=== PATIENT | female | born 1975 | race Caucasian/White ===

== ENCOUNTER 2023-08-06 12:10 | Emergency (ER) | payer SELFPAY ==
[2023-08-06 12:20] VITALS: BP 130/71; PULSE 74; RESP 18; TEMP 36.8; O2SAT 100; BMI 38.4
--- NOTE | 2023-08-06 12:41 | ED.NAVMDI1 ---
HPI - Nausea/Vomiting/Diarrhea General Chief complaint: Nausea/Vomiting/Diarrhea Stated complaint: NAUSEA/DIARRHEA/CRAMPING IN STOMACH/FEVER Time Seen by Provider: 08/06/23 12:24 Source: patient Mode of arrival: walk-in Limitations: no limitations History of Present Illness HPI Narrative: 48-year-old female presents for nausea vomiting and diarrhea. It began yesterday and she feels worse today. Whenever she eats or drinks anything she vomits. No blood in her diarrhea. She's had no recent hospitalization or antibiotic use. She hasn't been around anybody that she is aware of being ill. Related Data Previous Rx's Medication Instructions Recorded ondansetron 4 mg disintegrating 4 mg PO Q6H PRN nausea and 08/06/23 tablet vomiting #20 tabs Allergies Allergy/AdvReac Type Severity Reaction Status Date / Time naproxen Allergy Intermediate Verified 08/06/23 12:23 shellfish derived Allergy Intermediate Verified 08/06/23 12:23 Sulfa (Sulfonamide Allergy Intermediate Verified 08/06/23 12:23 Antibiotics) Review of Systems ROS Narrative A ten point review of systems is negative except as noted above. PFSH PFSH Social History Smoking status: Current every day smoker Exam Narrative Exam Narrative: Nurses note and vital signs reviewed and patient is not hypoxic. General: The patient appears well and in no apparent distress. Patient is resting comfortably on cart. Skin: Warm, dry, no pallor noted. There is no rash noted. Head: Normocephalic, atraumatic Eye: Normal conjunctiva, no drainage Ears, Nose, Mouth, and Throat: oral mucosa is moist. Nares patent. Cardiovascular: Regular Rate and Rhythm Respiratory: Patient is in no distress, no accessory muscle use, lungs are clear to auscultation, no wheezing, rales or rhonchi Back: non-tender GI: Normal bowel sounds, mild diffuse tenderness to palpation, no mass or distention Musculoskeletal: The patient has no evidence of calf tenderness, no pitting edema, symmetrical pulses noted bilaterally Neurological: A&O, normal speech Psychiatric: Cooperative Constitutional Vital Signs, click to edit/add: Last Vital Signs Temp 98.2 F 08/06/23 12:20 Pulse 74 08/06/23 12:20 Resp 18 08/06/23 12:20 BP 130/71 08/06/23 12:20 Pulse Ox 100 08/06/23 12:20 O2 Del Method Room Air 08/06/23 12:20 Course Vital Signs Vital signs: Vital Signs Temperature 98.2 F 08/06/23 12:20 Pulse Rate 74 08/06/23 12:20 Respiratory Rate 18 08/06/23 12:20 Blood Pressure 130/71 08/06/23 12:20 Pulse Oximetry 100 08/06/23 12:20 Oxygen Delivery Method Room Air 08/06/23 12:20 Temperature 98.2 F 08/06/23 12:20 Pulse Rate 74 08/06/23 12:20 Respiratory Rate 18 08/06/23 12:20 Blood Pressure 130/71 08/06/23 12:20 Pulse Oximetry 100 08/06/23 12:20 Oxygen Delivery Method Room Air 08/06/23 12:20 MDM - Nausea/Vomiting/Diarrhea MDM Narrative Medical decision making narrative: Blood work is essentially normal. She was given IV fluids and Zofran and is discharged home on Zofran. Treatment diagnosis and follow-up were discussed with the patient. Differential Diagnosis Differential diagnosis: Likely food poisoning, gastroenteritis and dehydration Lab Data Attestation: I reviewed the patient's lab results. Labs: Lab Results 08/06/23 Range/Units 13:00 WBC 6.2 (4.0-11.0) 10^3/uL RBC 4.64 (4.20-5.40) 10^6/uL Hgb 13.8 (12.0-16.0) g/dL Hct 42.8 (36.0-48.0) % MCV 92.2 (81.0-99.0) fL MCH 29.7 (26.7-34.0) pg MCHC 32.2 (29.9-35.2) g/dL RDW 13.8 (11.0-15.0) % Plt Count 199 (150-450) 10^3/uL MPV 10.4 (9.5-13.5) fL Neut % (Auto) 66.5 (43.0-75.0) % Lymph % (Auto) 23.3 (20.5-60.0) % [place] % (Auto) 7.9 (1.7-12.0) % Eos % (Auto) 1.6 (0.9-7.0) % Baso % (Auto) 0.5 (0.2-2.0) % Neut # (Auto) 4.1 (1.4-6.5) 10^3/uL Lymph # (Auto) 1.4 (1.2-3.8) 10^3/uL [place] # (Auto) 0.5 (0.3-0.8) 10^3/uL Eos # (Auto) 0.1 (0.0-0.7) 10^3/uL Baso # (Auto) 0.0 (0.0-0.1) 10^3/uL Abs Immat Gran (auto) 0.01 (0.00-0.03) 10^3/uL Imm/Tot Granulo (auto) 0.2 (0.0-0.5) % Sodium 141 (136-145) mmol/L Potassium 4.3 (3.5-5.1) mmol/L Chloride 106 (98-107) mmol/L Carbon Dioxide 27.5 (21.0-32.0) mmol/L Anion Gap 11.8 BUN 12.0 (7.0-18.0) mg/dL Creatinine 0.72 (0.55-1.02) mg/dL Est GFR ( Amer) >60 (>=60) Est GFR (Non-Af Amer) >60 (>=60) BUN/Creatinine Ratio 16.7 Glucose 88 (74-106) mg/dL Calcium 9.1 (8.5-10.1) mg/dL Discharge Plan Discharge Chief Complaint: Nausea/Vomiting/Diarrhea Clinical Impression: Nausea vomiting and diarrhea Patient Disposition: Home, Self-Care Time of Disposition Decision: 13:49 Condition: Good Mode of Transportation: Private Vehicle Prescriptions / Home Meds: New ondansetron 4 mg tablet,disintegrating 4 mg PO Q6H PRN (Reason: nausea and vomiting) Qty: 20 0RF Instructions: Acute Nausea and Vomiting (ED) Stand Alone Forms: Portal Instructions Referrals: Physician,Non-Staff, MD [Primary Care Provider] - 1 week
[2023-08-06] MEDS: 0.9 % SODIUM CHLORIDE 1,000 ML 1000 ML IV (13:02)
[2023-08-06] MEDS: ONDANSETRON PF 4 MG/2 ML VIAL IV (13:03)
[2023-08-06 13:08] LABS: Basophils Percent Auto 0.5 % (0.2-2.0); Eosinophils Absolute Auto 0.1 10^3/uL (0.0-0.7); Eosinophils Percent Auto 1.6 % (0.9-7.0); Hematocrit 42.8 % (36.0-48.0); Hemoglobin 13.8 g/dL (12.0-16.0); Immature Granulocytes Abs Auto 0.01 10^3/uL (0.00-0.03); Immature Granulocytes Pct Auto 0.2 % (0.0-0.5); Lymphocytes Absolute Auto 1.4 10^3/uL (1.2-3.8); Lymphocytes Percent Auto 23.3 % (20.5-60.0); Mean Corpuscular HGB Conc 32.2 g/dL (29.9-35.2); Mean Corpuscular Hemoglobin 29.7 pg (26.7-34.0); Mean Corpuscular Volume 92.2 fL (81.0-99.0); Mean Platelet Volume 10.4 fL (9.5-13.5); Monocytes Absolute Auto 0.5 10^3/uL (0.3-0.8); Monocytes Percent Auto 7.9 % (1.7-12.0); Neutrophils Absolute Auto 4.1 10^3/uL (1.4-6.5); Neutrophils Percent Auto 66.5 % (43.0-75.0); Platelet Count 199 10^3/uL (150-450); Red Blood Count 4.64 10^6/uL (4.20-5.40); Red Cell Distribution Width 13.8 % (11.0-15.0); White Blood Count 6.2 10^3/uL (4.0-11.0)
[2023-08-06 13:16] LABS: Anion Gap 11.8; BUN Creatinine Ratio 16.7; Calcium 9.1 mg/dL (8.5-10.1); Carbon Dioxide 27.5 mmol/L (21.0-32.0); Chloride 106 mmol/L (98-107); Estimated GFR (African America >60 (>=60); Estimated GFR (Non-African Ame >60 (>=60); Glucose 88 mg/dL (74-106); Potassium 4.3 mmol/L (3.5-5.1); Sodium 141 mmol/L (136-145)
[2023-08-06 13:48] VITALS: BP 124/79; PULSE 63; RESP 18; O2SAT 98
== END 2023-08-06 14:03 | disposition home or self-care (01) ==
PROVIDERS: Emergency Provider Emergency Medicine
DX: R11.2 Nausea with vomiting, unspecified (principal); R19.7 Diarrhea, unspecified; F17.210 Nicotine dependence, cigarettes, uncomplicated
CPT/HCPCS: 36415; 80048; 85025; 96361; 96374; 99284

== ENCOUNTER 2023-09-21 17:38 | Emergency (ER) | payer SELFPAY ==
[2023-09-21 18:04] VITALS: BP 120/70; PULSE 72; RESP 18; TEMP 36.8; O2SAT 94; BMI 36.3
--- NOTE | 2023-09-21 19:16 | ED_ITS ---
HPI - General Adult General Chief complaint: Headache Stated complaint: HEADACHE Time Seen by Provider: 09/21/23 19:09 Source: patient Mode of arrival: walk-in Limitations: no limitations History of Present Illness HPI narrative: 48-year-old female with a history of migraine headaches presents for evaluation of a migraine headache since noon today associated with nausea, photophobia. She has no focal weakness numbness or tingling. This is a typical migraine for her. She states it is located in the posterior aspect of her head and it is throbbing. She has recently become nauseated but has not vomited. She denies any fever. She has no neck pain or stiffness. She does see a neurologist in [place]. She states she typically aborts her migraines with Imitrex but she is out of Imitrex. Related Data Previous Rx's Medication Instructions Recorded ondansetron 4 mg disintegrating 4 mg PO Q6H PRN nausea and 08/06/23 tablet vomiting #20 tabs Allergies Allergy/AdvReac Type Severity Reaction Status Date / Time naproxen Allergy Intermediate Verified 09/21/23 18:04 shellfish derived Allergy Intermediate Verified 09/21/23 18:04 Sulfa (Sulfonamide Allergy Intermediate Verified 09/21/23 18:04 Antibiotics) Review of Systems ROS Status of ROS 10 or more systems reviewed and unremarkable except as noted in history and below [facility] Social History Smoking status: Current every day smoker Exam Narrative Exam Narrative: Nurses note and vital signs reviewed and patient is not hypoxic. General: Non toxic but uncomfortable appearing female lying in a dark room covering her eyes, no respiratory distress, no active vomiting Skin: Warm, dry, no pallor noted. There is no rash noted. Head: Normocephalic, atraumatic Eye: Normal conjunctiva, no drainage, EOMI. PERRL, vision grossly intact, +photophobia Ears, Nose, Mouth, and Throat: oral mucosa is moist. No facial droop Cardiovascular: Regular Rate and Rhythm S1S2, no murmurs, tubs or gallops Respiratory: Patient is in no distress, no accessory muscle use, lungs are clear to auscultation, no wheezing, rales or rhonchi Back: non-tender, no CVA tenderness bilaterally to percussion. GI: Normal bowel sounds, no tenderness to palpation, no masses appreciated. No rebound, guarding, or rigidity noted. Musculoskeletal: The patient has no evidence of calf tenderness, no pitting edema, symmetrical pulses noted bilaterally Neurological: A&O x4, normal speech, sports fitness and wellness director strength intact, no focal deficits Psychiatric: Cooperative Constitutional Vital Signs, click to edit/add: Last Vital Signs Temp 98.2 F 09/21/23 18:04 Pulse 72 09/21/23 18:04 Resp 18 09/21/23 18:04 BP 120/70 09/21/23 18:04 Pulse Ox 94 L 09/21/23 18:04 O2 Del Method Room Air 09/21/23 18:04 Course Vital Signs Vital signs: Vital Signs Temperature 98.2 F 09/21/23 18:04 Pulse Rate 72 09/21/23 18:04 Respiratory Rate 18 09/21/23 18:04 Blood Pressure 120/70 09/21/23 18:04 Pulse Oximetry 94 L 09/21/23 18:04 Oxygen Delivery Method Room Air 09/21/23 18:04 Temperature 98.2 F 09/21/23 18:04 Pulse Rate 72 09/21/23 18:04 Respiratory Rate 18 09/21/23 18:04 Blood Pressure 120/70 09/21/23 18:04 Pulse Oximetry 94 L 09/21/23 18:04 Oxygen Delivery Method Room Air 09/21/23 18:04 Medical Decision Making MDM Narrative Medical decision making narrative: This 48-year-old female presents for evaluation of a migraine headache that started around noon. It is a typical migraine for her. She typically uses Imitrex but was out of it. In emergency department she was given Imitrex, Toradol, Reglan and Benadryl and IV fluids. On reevaluation she states that her headache is improved but not gone but she would like to be discharged home. 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 She will be discharged home with a prescription for Zofran and Imitrex use as needed for recurrent headaches. She does follow up with a neurologist in [facility]. Discharge Plan Discharge Chief Complaint: Headache Clinical Impression: Migraine Time of Disposition Decision: 20:48 Condition: Good Prescriptions / Home Meds: No Action ondansetron 4 mg tablet,disintegrating 4 mg PO Q6H PRN (Reason: nausea and vomiting) Qty: 20 0RF Instructions: Migraine Headache (ED) Stand Alone Forms: Portal Instructions Referrals: Physician,Non-Staff, MD [Primary Care Provider] - 1 week
[2023-09-21] MEDS: 0.9 % SODIUM CHLORIDE 1,000 ML 1000 ML IV (19:56)
[2023-09-21] MEDS: METOCLOPRAMIDE HCL 10 MG/2 ML VIAL IVP (19:56)
[2023-09-21] MEDS: KETOROLAC TROMETHAMINE 30 MG/ML VIAL IVP (19:56)
[2023-09-21] MEDS: DIPHENHYDRAMINE HCL 50 MG/ML (1ML) VIAL 12.5 MG IV (19:56)
[2023-09-21] MEDS: SUMATRIPTAN SUCCINATE 6 MG/0.5 ML VIAL SUBQ (19:56)
== END 2023-09-21 21:03 | disposition home or self-care (01) ==
PROVIDERS: Emergency Provider Emergency Medicine
DX: G43.909 Migraine, unspecified, not intractable, without status migrainosus (principal); F17.210 Nicotine dependence, cigarettes, uncomplicated
CPT/HCPCS: 99284

== ENCOUNTER 2024-07-11 23:26 | Emergency (ER) | payer BC, SELFPAY ==
[2024-07-11 23:30] VITALS: BP 128/85; PULSE 78; TEMP 36.9; O2SAT 98; BMI 37.2
--- NOTE | 2024-07-12 00:14 | ED.ABDPAIN1 ---
HPI - Abdominal Pain General Chief Complaint: Abdominal Pain Stated Complaint: abd pain Time Seen by Provider: 07/12/24 00:04 Source: patient Mode of arrival: walk-in Limitations: no limitations History of Present Illness HPI narrative: ill for a couple of days with recurrent vomiting and diarrhea. 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 States about 45 minutes later she felt ill and now presents because of the continued vomiting and pain. no fever. No hematemesis Related Data Home Medications ?Medication ?Instructions ?Recorded ?Confirmed No Known Home Medications 07/11/24 07/11/24 Allergies Allergy/AdvReac Type Severity Reaction Status Date / Time naproxen Allergy Intermediate Unknown Verified 07/11/24 23:38 shellfish derived Allergy Intermediate Unknown Verified 07/11/24 23:38 Sulfa (Sulfonamide Allergy Intermediate Unknown Verified 07/11/24 23:38 Antibiotics) Review of Systems ROS Status of ROS 10 or more systems reviewed and unremarkable except as noted in history and below [facility] Social History Smoking status: Current every day smoker Exam Constitutional Vital Signs, click to edit/add: Last Vital Signs Temp 98.5 F 07/11/24 23:30 Pulse 78 07/11/24 23:30 Resp 18 07/11/24 23:30 BP 128/85 07/11/24 23:30 Pulse Ox 98 07/11/24 23:30 O2 Del Method Room Air 07/11/24 23:30 Common normals: no apparent distress, average body habitus, oriented x3, no limitations, healthy appearing, alert and well nourished [facility] Common normals: normocephalic and head/scalp atraumatic Eye Common normals: PERRL, EOMs intact bilaterally and conjunctivae normal Respiratory Common normals: normal respiratory effort, no retractions, no use of accessory muscles and clear to auscultation bilaterally Cardio Common normals: regular rate, regular rhythm, S1 normal heart sound and S2 normal heart sound GI Common normals: Normal to inspection, nondistended, normoactive bowel sounds present and soft to palpation Other: mild tenderness Extremity Common normals: normal to inspection and full ROM Neuro Common normals: oriented x3, CN's II-XII intact bilaterally, moves all extremities and no focal motor deficits Psych Appearance: grossly normal Course Vital Signs Vital signs: Vital Signs Temperature 98.5 F 07/11/24 23:30 Pulse Rate 78 07/11/24 23:30 Respiratory Rate 18 07/11/24 23:30 Blood Pressure 128/85 07/11/24 23:30 Pulse Oximetry 98 07/11/24 23:30 Oxygen Delivery Method Room Air 07/11/24 23:30 Temperature 98.5 F 07/11/24 23:30 Pulse Rate 78 07/11/24 23:30 Respiratory Rate 18 07/11/24 23:30 Blood Pressure 128/85 07/11/24 23:30 Pulse Oximetry 98 07/11/24 23:30 Oxygen Delivery Method Room Air 07/11/24 23:30 MDM - Abdominal Pain MDM Narrative Medical decision making narrative: patient presents as possible food poisoning. After eating food from vending machine at work she felt ill within the hour . later began vomiting and having diarrhea. Started one day before coming to ER. abdomen with gen. tenderness likely from recurrent vomiting. N/V controlled with zofran. CT with findings or early diverticulitis. Patient hydrated in the department and treated with IV cipro and flagyl prior to discharge. No recurrence of vomiting during her time in the ED and she is overall feeling better. Discharged home with zofran, cipro and flagyl Lab Data Labs: Lab Results 07/12/24 07/12/24 Range/Units 00:00 00:30 WBC 7.9 (4.0-11.0) 10^3/uL RBC 4.93 (4.20-5.40) 10^6/uL Hgb 14.6 (12.0-16.0) g/dL Hct 44.0 (36.0-48.0) % MCV 89.2 (81.0-99.0) fL MCH 29.6 (26.7-34.0) pg MCHC 33.2 (29.9-35.2) g/dL RDW 13.8 (11.0-15.0) % Plt Count 242 (150-450) 10^3/uL MPV 10.4 (9.5-13.5) fL Neut % (Auto) 60.4 (43.0-75.0) % Lymph % (Auto) 29.6 (20.5-60.0) % [place] % (Auto) 6.1 (1.7-12.0) % Eos % (Auto) 3.0 (0.9-7.0) % Baso % (Auto) 0.6 (0.2-2.0) % Neut # (Auto) 4.8 (1.4-6.5) 10^3/uL Lymph # (Auto) 2.3 (1.2-3.8) 10^3/uL [place] # (Auto) 0.5 (0.3-0.8) 10^3/uL Eos # (Auto) 0.2 (0.0-0.7) 10^3/uL Baso # (Auto) 0.1 (0.0-0.1) 10^3/uL Abs Immat Gran (auto) 0.02 (0.00-0.03) 10^3/uL Imm/Tot Granulo (auto) 0.3 (0.0-0.5) % Sodium 138 (136-145) mmol/L Potassium 3.8 (3.5-5.1) mmol/L Chloride 104 (98-107) mmol/L Carbon Dioxide 27.5 (21.0-32.0) mmol/L Anion Gap 10.3 BUN 10.0 (7.0-18.0) mg/dL Creatinine 0.71 (0.55-1.02) mg/dL Est GFR ( Amer) >60 (>=60) Est GFR (Non-Af Amer) >60 (>=60) BUN/Creatinine Ratio 14.1 Glucose 92 (74-106) mg/dL Lactate 0.9 (0.4-2.0) mmol/L Calcium 9.0 (8.5-10.1) mg/dL Total Bilirubin 0.4 (0.2-1.0) mg/dL AST 9 L (15-37) U/L ALT 18 (14-59) U/L Alkaline Phosphatase 115 (46-116) U/L Total Protein 6.9 (6.4-8.2) g/dL Albumin 3.6 (3.4-5.0) g/dL Globulin 3.3 g/dL Albumin/Globulin Ratio 1.1 Lipase 27.0 (16.0-77.0) U/L Urine Color Yellow (YELLOW) Urine Clarity Clear (CLEAR) Urine pH 7.0 (5.0-9.0) Ur Specific [place] 1.020 (1.005-1.025) Urine Protein Negative (NEG/TRACE) mg/dL Urine Glucose (UA) Negative (NEGATIVE) mg/dL Urine Ketones Negative (NEGATIVE) mg/dL Urine Occult Blood Negative (NEGATIVE) Urine Nitrite Negative (NEGATIVE) Urine Bilirubin Negative (NEGATIVE) Urine Urobilinogen 0.2 (0.2-1.0) EU/dL Ur Leukocyte Esterase Negative (NEGATIVE) Imaging Data Chest x-ray: Radiologist's impression: ITS Impressions Abdomen/Pelvis CT 07/12/24 00:41 IMPRESSION: 1. Possible early acute sigmoid diverticulitis. 2. Status post cholecystectomy, appendectomy, and hysterectomy. 3. Left adrenal adenomas. Electronically authenticated by: Sp CHAPIN Date: 07/12/2024 02:02 Discharge Plan Discharge Stand Alone Forms: Work/School Release, Portal Instructions Chief Complaint: Abdominal Pain Clinical Impression: Gastroenteritis, Diverticulitis Patient Disposition: Home, Self-Care Prescriptions / Home Meds: No Action No Known Home Medications Print Language: Mal[place]ian Instructions: Diverticulitis (ED), Gastroenteritis (ED) Additional Instructions: liquid diet for a couple of days. follow up with your doctor next week Referrals: Physician,Non-Staff, MD [Primary Care Provider] - 1 week Discharge Date/Time: 07/12/24 04:00
--- OUTSIDE RECORDS SUMMARY | 2024-07-12 00:26 | XMS_ITS | CCD ---
Author Organization [facility] Inform ion [facility] Care Team Providers Care Cook Manager Name Role Phone LUCIA JANG Unavailable Unavailable [facility] Admitting Unava ilable [facility] Attending Unava ilable [facility] Consulting Unava ilable [facility], [facility] Primary Care Unava ilable MISC, DR OLIVIA Attending Unavailable MISC, DR OLIVIA Consulting Unavailable MISC, DR OLIVIA Admitting Unavailable [facility], [facility] Primary Care Unava ilable [facility] Attending Unava ilable [facility] Consulting Unava ilable [facility], [facility] Primary Care Unava ilable [facility], [facility] Admitting Unava ilable HAY, DR HENDERSON Attending Unavailable BREANA JOEL Consulting Unavailable DEBBIE, DR HENDERSON Admitting Unavailable [facility], [facility] Primary Care Unava ilable Rumschlag Ruth MENDEZ Primary Care Provider TOYA COOPER Referring Unavailable RUMSCHLAG, RUTH Primary Care Unavailable PANGULUR TOYA Gilmer Admitting Unavailable PANGULUR TOYA Gilmer Attending Unavailable RUMSCHLAG, RUTH Primary Care Unavailable JES MANNING Referring Unavailable RUMSCHLAG, RUTH K Primary Care Unavailable JES MANNING Referring Unavailable RUMSCHLAG, RUTH K Primary Care Unavailable JES MANNING Referring Unavailable RUMSCHLAG, RUTH K Primary Care Unavailable JES MANNING Referring Unavailable RUMSCHLAG, RUTH K Primary Care Unavailable JES MANNING Referring Unavailable RUMSCHLAG, RUTH K Primary Care Unavailable SHAHIDA REIS Referring Unavailable RUMSCHLAG, RUTH K Primary Care Unavailable JES MANNING Referring Unavailable RUMSCHLAG, RUTH K Primary Care Unavailable Allergies Allergy Classification Reported Allergen(s) Allergy Type Date of Onset Reaction(s) Facility Aspirin (1 source) Aspirin Drug Allergy [facility] Repository NSAIDs (2 sources) Naproxen; Translations: [Anaprox] Drug Allergy [facility] Rep[facility] Shellfish (1 source) Shellfish Food Allergy [facility] Repository Sulfonamides (antibiotic) (1 source) Sulfonamides (Antibiotic) Drug Allergy [facility] Repository (3 sources) Aluminum aspirin; Translations: [ASPIRIN] Drug Allergy 7 [facility]om[facility] [employer] Work Phone: (3 sources) Naproxen; Translations: [NAPROXEN] Drug Allergy 7 [facility] (2 sources) Sulfonamides (Antibiotic) Propensity to adverse reactions to drug 8 [employer] Work Phone: (2 sources) Shellfish-Derive d Products Propensity to adverse reactions to drug 8 [employer] Phone: (1 source) Glucosamine; Translations: [GLUCOSAMINE] Drug Allergy 8 [facility] Repository (1 source) Naproxen; Translations: [NAPROXEN SODIUM] Drug Allergy 7 [facility] Rep[facility] (1 source) Shellfish; Translations: [SHELLFISH DERIVED] Propensity to adverse reactions to food (disorder) 8 [facility] Repository (1 source) sulfaSALAzine; Translations: [SULFASALAZINE] Drug Allergy 8 [facility] Repository (1 source) Sulfonamides (Antibiotic); Translations: [SULFA (SULFONAMIDE ANTIBIOTICS)] Propensity to adverse reactions to drug (disorder) 7 [facility] Repository Medications Current Medications Medication Drug Class(es) Dates Sig (Normalized) Sig (Original) ARIPiprazole 5 mg oral tablet (2 sources) Atypical Antipsychotic Start: 08-06-2022 take 1 tablet by mouth once daily at bedtime ARIPiprazole (ABILIFY) 5 MG tablet TAKE 1 TABLET BY MOUTH EVERYDAY AT BEDTIME 0 08/06/2022 Active calcium chloride 0.0014 meq/ml / potassium chloride 0.004 meq/ml / sodium chloride 0.103 meq/ml / sodium lactate 0.028 meq/ml injectable solution (1 source) Start: 09-06-2022 lactated ringers infusion DULoxetine 60 mg delayed release oral capsule (2 sources) Serotonin and Norepinephrine Reuptake Inhibitor Start: 08-06-2022 take 1 capsule by mouth once daily in the morning DULoxetine (CYMBALTA) 60 MG extended release capsule TAKE 1 CAPSULE BY MOUTH EVERY DAY IN THE MORNING 0 08/06/2022 Active famotidine 20 mg oral tablet (2 sources) Histamine-2 Receptor Antagonist Start: 06-21-2022 take 1 tablet by mouth once daily at bedtime famotidine (PEPCID) 20 MG tablet TAKE 1 TABLET BY MOUTH EVERY DAY AT BEDTIME IF NEEDED 0 06/21/2022 Active hydrOXYzine hydrochloride 50 mg oral tablet (2 sources) Antihistamine Start: 08-04-2022 take 1 tablet by mouth once daily at bedtime as needed hydrOXYzine HCl (ATARAX) 50 MG tablet TAKE 1 TABLET BY MOUTH EVERY DAY AT BEDTIME NEEDED FOR 90 DAYS 0 08/04/2022 Active ibuprofen 800 mg oral tablet (2 sources) Nonsteroidal Anti-inflammatory Drug take 1 tablet by mouth every six hours as needed for pain ibuprofen (ADVIL;MOTRIN) 800 MG tablet Take 800 mg by mouth every 6 hours as needed for Pain 0 Active lamoTRIgine 25 mg oral tablet (2 sources) Mood Stabilizer, Anti-epileptic Agent Start: 08-06-2022 lamoTRIgine (LAMICTAL) 25 MG tablet 25 mg 2 times daily 0 08/06/2022 Active Multiple Vitamins-Minerals (THERAPEUTIC MULTIVITAMIN-MINERA LS) tablet (1 source) take 1 tablet by mouth once daily Multiple Vitamins-Minerals (THERAPEUTIC MULTIVITAMIN-MINE RALS) tablet Take 1 tablet by mouth daily 0 Active omeprazole 40 mg delayed release oral capsule (2 sources) Proton Pump Inhibitor Start: 06-20-2022 omeprazole (PRILOSEC) 40 MG delayed release capsule TAKE 1 CAPSULE BY MOUTH EVERY DAY 30 MINUTES BEFORE MORNING MEAL 0 06/20/2022 Active rosuvastatin calcium 20 mg oral tablet (2 sources) HMG-CoA Reductase Inhibitor Start: 08-04-2022 take 1 tablet by mouth once daily rosuvastatin (CRESTOR) 20 MG tablet TAKE 1 TABLET BY MOUTH EVERY DAY FOR 90 DAYS 0 08/04/2022 Active 5 ml sodium chloride 9 mg/ml injection (3 sources) Start: 09-06-2022 0.9 % sodium chloride infusion Start: 09-06-2022 sodium chlorid e flush 0.9 % injection 5-40 mL SUMAtriptan 100 mg oral tablet (1 source) Serotonin-1b and Serotonin-1d Receptor Agonist Start: 10-25-2019 SUMAtriptan (IMITREX ) 100 MG tablet Take 100 mg by mouth as needed 0 10/25/2019 Active Completed/Discontinued Medications Medication Drug Class(es) Dates Sig (Normalized) Sig (Original) cephalexin 250 mg oral capsule (1 source) Cephalosporin Antibacterial End: 08-30-2022 take 1 capsule by mouth four times daily cephALEXin (KEFLEX) 250 MG capsule Take 250 mg by mouth 4 times daily 0 08/30/2022 Discontinued (LIST CLEANUP) Problems Active Problems Problem Classification Problem Date Documented Date Episodic/Chronic Abdominal pain (5 sources) Upper abdominal pain, unspecified; Translations: [Epigastric pain] Onset: 06-16-2020 Episodic Acute bronchitis (1 source) Acute bronchitis, unspecified; Translations: [ACUTE BRONCHITIS UNSPECIFIED] Onset: 03-04-2021 Episodic Fracture of upper limb (1 source) Other intraarticular fracture of lower end of left radius, initial encounter for closed fracture; Translations: [Other intraarticular fracture of lower end of left radius, initial encounter for closed fracture] Onset: 01-13-2024 Episodic Other and unspecified benign neoplasm (1 source) History of polyp of colon; Translations: [Personal history of colonic polyps] Episodic Other and unspecified benign neoplasm (1 source) Personal history of colonic polyps; Translations: [Personal history of colonic polyps] Onset: 09-06-2022 Episodic Residual codes; unclassified (1 source) Pain, unspecified; Translations: [Pain, unspecified] Onset: 03-14-2024 Episodic Skin and subcutaneous tissue infections (1 source) Cellulitis of right finger; Translations: [Cellulitis of right finger] Onset: 07-23-2018 Episodic Substance-related disorders (1 source) Nicotine dependence, cigarettes, uncomplicated; Translations: [NICOTINE DEPEND CIGARETTES UNCOMP] Onset: 06-16-2020 Chronic Unclassified (3 sources) CONTACT W/AND (SUSP) EXPOS COVID-19; Translations: [CONTACT W/AND (SUSP) EXPOS COVID-19] Onset: 03-04-2021 Past or Other Problems Problem Classification Problem Date Documented Da te Episodic/Chronic Fever of unknown origin (1 source) Fever, unspecified; Translations: [FEVER UNSPECIFIED] Onset: 07-18-2020 Episodic Immunizations and screening for infectious disease (8 sources) Contact with and (suspected) exposure to other viral communicable diseases; Translations: [Encounter for screening for other viral diseases] Onset: 07-15-2020 Episodic Nausea and vomiting (4 sources) Vomiting, unspecified; Translations: [VOMITING UNSPECIFIED] Onset: 06-12-2020 Episodic Other aftercare (1 source) 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; Translations: [OTH SUPERVISOR PRESSING DEPARTMENT CURRENT DRUG THERAPY] Onset: 06-16-2020 Episodic Other gastrointestinal disorders (1 source) Diarrhea, unspecified; Translations: [DIARRHEA UNSPECIFIED] Onset: 06-16-2020 Episodic Residual codes; unclassified (1 source) Acquired absence of other specified parts of digestive tract; Translations: [ACQ ABSENCE OTH PART DIGESTV TRACT] Onset: 06-16-2020 Episodic Residual codes; unclassified (1 source) Acquired absence of both cervix and uterus; Translations: [ACQUIRED ABSENCE BOTH CERVIX AND UTERUS] Onset: 06-16-2020 Episodic Unclassified (1 source) CONTACT W/AND (SUSP) EXPOS COVID-19; Translations: [CONTACT W/AND (SUSP) EXPOS COVID-19] Onset: 02-25-2021 Results Test Name Value Interpretation Reference Range Facility XR WRIST LT MIN 3 VWSon 05-0 XR WRIST LT MIN 3 VWS XR WRIST LT MIN 3 VWS *ADDENDUM*Ulnar styloid process fracture was present on the prior examination of 09/30/2023 and it is old fracture. No evidence of new fracture or acute bony pathology on current examination. Finalized by Ran rGaves MD on 03/14/2024 5:29 PM Normal [facility] [place] Surgical Pathologyon 10-24-2 022 Surgical Pathology (NOTE) -- Diagnosis -- A. STOMACH, BIOPSY: -GASTRIC OXYNTIC TYPE MUCOSA WITH MINIMAL CHRONIC INFLAMMATION -BY CYNTHIA STAINING, HELICOBACTER PYLORI MICROORGANISMS ARE NOT IDENTIFIED B. ESOPHAGUS, BIOPSY: -NO PATHOLOGIC DIAGNOSIS -THE FEATURES OF EOSINOPHILIC ESOPHAGITIS ARE NOT IDENTIFIED C. COLON, RANDOM BIOPSIES: -LARGE INTESTINAL TYPE MUCOSA DEMONSTRATING NO SIGNIFICANT HISTOPATHOLOGIC FEATURES -THE FEATURES OF LYMPHOCYTIC AND/OR COLLAGENOUS COLITIS ARE NOT IDENTIFIED Hollis Rivera D.O. Electronically Signed Out 09/07/2022 Clinical Information Pre-op Diagnosis: EPIGASTRIC ABD PAIN, HISTORY OF COLON POLYPS Operative Findings: RANDOM BIOPSIES TO CHECK FOR H. PYLORI; BIOPSIES TO CHECK FOR EOSINOPHILIC ESOPHAGITIS; RANDOM BIOPSIES TO CHECK FOR MICROSCOPIC COLITIS Operation Performed: EGD BIOPSY, COLONOSCOPY Source of Specimen A: RANDOM BIOPSIES TO CHECK FOR H. PYLORI B: BIOPSIES TO CHECK FOR EOSINOPHILIC ESOPHAGITIS C: RANDOM BIOPSIES TO CHECK FOR MICROSCOPIC COLITIS Gross Description A. JT FRIEDMAN, RANDOM BIOPSIES Three ferrer-white tissue fragments from 0.3 to 0.4 cm and are 0.6 x 0.4 x 0.2 cm in aggregate. Entirely 1cs. B. JT FRIEDMAN, ESOPHAGUS Two frerer-white tissue fragments from 0.5 to 0.7 cm and are 0.7 x 0.4 x 0.1 cm in aggregate. Entirely 1cs. C. JT FRIEDMAN, RANDOM BIOPSIES Four ferrer-white tissue fragments each 0.3 cm and are 0.6 x 0.4 x 0.2 cm in aggregate. Entirely 1cs. lm tm Microscopic Description A-C. Microscopic examination performed. SURGICAL PATHOLOGY CONSULTATION Patient Name: JT FRIEDMAN [facility] Rec: [id number] Path Number: [id number] [facility] ANATOMIC PATHOLOGY [address] [place] [id number] [facility] Comment on above: Performed By: #### P PPVS #### [address] [address] Mixer Operator Hot Metal: Terry Reynolds MD Coding Summaryon 07-06-2022 Coding Summary HTMLBase 64 CkhulyboEZb4qKc+PGhl YWQ+FZ7BWUYeD20grEZy fK6SL8eLCK9GWZDJKCZU EK6LPT6yxYM6MNicE4Fm biAv HjgulHRxNH15YEd8YLA9 hNqrNGqvjD9xvUCtE6q1 GyWrSJ08kI17KTbbSOUm YtK8JtPboehmwPPq X6txXlSknUEbSac+PHRh YmxlIHdpZHRoPScxMDAl FbUdkRekRY0uBn8lSVCf LWNvbGxhcHNlOiBj y9nbFBMhSGbeNC1umKbr F1TpeMH5ZNNtu9o5Uk88 dHI+PXJvZBH7vUioSLnf v802AjPhm8ddXOV6 gYCkMWwpFTZ0B97ke9A0 IXSdTHNeFIK0mDU9oX4r bQsjujqoJ6KcnWYqJwD8 VVN1cJXpyW7nrEib mpdunX8uEvs+Q77YYI6V MXIWHY0SOkk5O0PyHrev dHI+HS11MLTiLS35qYZo yWNyb9dflHq5SzLs RVVqJGR3nUscFZbrw6Dp USJaO01jgYJtu9K1GKVj kPjikRVjLgMjnBG6rR0h XLimgxwzg9zmggam Bxddy8bcju53zO93J40m GQmyVLJnYDA5MSQsCIDg bSuduf1pfL1zVc7+IDxj p9uwa5ceuFb3YkSv XZYpmgKrhCxoSRO5x4Su Sx79Y4GdoTpwy6JjLsv6 sl26yPGss0D7iQB8FXjq NBZjiK3gKVrzMqT6 MMFpUwMgaF72pEOaGOgm Kv8pkNkuyGwsPT5gSKOw wkhwUJXocF0yNIAhyOFc zWqmIS9sHXBcdkvy j630OyZzPGI0ALBqzZAr F1VurT0uNuYyFETmBDGc Z7JifSBaDTdzV254GUfd QeD4WRIrxpIzV8Nq HHLufJjlZbM7l7F1Si8N z2BbhvviFOP5WPlfCYW7 YpKnAsFtNdR4N2DtVhg0 RCGxpVbkUZ6wD2Ng VUKqtbzzkdyeaPE1TROi BXHalA24jQSkZUgbNl2w p9B1i039WCOmFBSsyT21 To6xqYqcQVWxcRDG zJ5kbtdwf7xiudniFjFa QGEvKEl5BKr3YYNmgEps VgFdWKF8YxI8DSP5cSPk qI1giYsleswqbQ4d Oyc+U07dkL3wWQJ0YWZ0 daepILJckiOjYE55BN11 C0YrLonqnUNepDF+PGRp xaYbrZyyKK9aImNv u2zlm4EoJUgvO0MtCNLp NAdjPhf4FMThTZB2bXD4 xP1hTDVsJFeyx0K1uKI9 A7MmgnQnfq3ij9zo ZEFkAXpdU49btAPwi8B6 QUHxpME2PAOzjVuaQmZp tX37Fjz+IKMyfEqku5Qc Tnetw9ryd0gszUm6 IjMwJSIgdmFsaWduPSJ0 o4JfTt79N14xEDcjENUu KPHpNFRlRNXzzKpkfl5q fR2pTe6+PGNvbCB3 dXX8iG0vVVEcYgZ5BEeg J030FpMrdOFgTczme2tm d6shyOi9HuLdHEBfmhCc rDtcHNZ5g7OlXe14 K10ePEtzCWToJIEqCGIh VUKzjGeurs4enV2kBk0+ UQ8xk5vtbh17sA31bWI+ PECpQKQ3mBboGWni MDUlpQ1jOIbkPvG5MWZs QlRjpJ26tDMiGFeeNm0a xBpciNykFR9wDEGyzesq e760NaNrj4lpBGSl hMFyNFkqUDV2F58zc7R8 FDDyVEJdRIF7sLZ9qB6x bGlnbjogbGVmdDsgdmVy aPnhUQpxVVevC559 IHRvcDsnPlBhdGllbnQg IsDbQNv9Q3OgWzg8VSGu bOqhPO7lqMFmVRazPu0x jXhgdSckJG5oKDZi xvxsw472ZlYss3sxJVUk oJJyAYwfPJM8L98xq7W1 FWTnRFCwHDM6lQQ1aR4h bGlnbjogbGVmdDsg unMwhCytQEuzNLgbM795 IHRvcDsnPkJpcnRoIERh cCU8RE48GP57iXTpk7O2 hJP6P6MxPGOklqas mpfvtZT8PZJwFTExkK86 Yf2cgJtiQi9sYPCsTQN4 YQKrgSCyE5WdiC6qYoMs JANtHOHyE0QwxCEw BAhlO006MPumMiV2UNVn rkOhX3UvXXSfjEzaOgB3 y4U5Pt4JO3Z4HY75MA76 kULyr6B7kMI2R9Fn EXSglvmcpdbsnJO7CWIt HXPrpX42Yc8jvUfnQf2q GHPfESH5MXEzjOMfL2Qh cK9iRsJpPFEoFALg E7LqvUNiEXczK202MJsw OsT1KZAzaqXsE0PtKMHf wAbsPzH8l9V3Wn4HUQw8 HA21BG92gUGcg9R8 lBR7V9EpZKLbptoarpsu eTL6PBLuRDWokS01Uc2f cFqqUt0aAQUbVHD2ULIp cKAjY8XrnT9sQdHh RVIbVWQjM2RxnSTzNFkx W804SDrhFwP8SOFtzkHc J3KkQGLqkMosKsO0k5J5 Dw1NQXTwBJ99FAN4 lTB8HC41ER59X0CbHdpi dGFibGU+PHRhYmxlIHdp ZHRoPScxMDAlJyBzdHls FN2iTy9eMBClOHXd iFuprLVxZvKlq1cwRGBu MTsdMV4atTgoZ7ByeEN5 LAXfg4s5Wd86K80aC3Tc dXA+TRPnbUE9yRQ9 eW9rTdAfUrD7DVwyU316 XvXebWHeYzpbj6bsg5xw nKk5RgM3FCHvmeHvpYho SJN3q7SlJu16T80l IHdpZHRoPSIxNSUiIHZh hFdmmd0qhH3qSe1+PGNv tVC8iFE5bI5oZsEfOcS2 PFacS543IpWvnBEi Npdte9gsj1tzqYd9NyRr HZMetjHziDpbSNI4v0Wx Hj07P7RzoQaoj8XaQlx7 dt10rYDuc3Y4qTR3 V1SrLRGuxadgwQTvbSog HL3zULUhhuglXOOldP7y NBVwH4f9BaShEyP9KKsx U2SvwwO2HNGjiLNs EWatQYP3N85qs4T6YPEc DKPcWKR3rPF8yS7lfWbq bjogbGVmdDsgdmVydGlj NNduAJdgJ294JLTy vHbwODTemC9iYKRqaIJn kSeaLP5kMRSidbxbNzqO NU6TZ83hZCVGF2RBRXRz WCACJOR0K5EmKfs4 ECRhdWnmGZ3jzICfZUsf Sm9zrJhvgTklUJ3mFRUu zceqHIDnqM6uUOQfxKSl oJzeDR9pOVYkwtrk t079HxBzILS8FXKffCZb M5VcgV9yHwLoUVLuVTRg M6UfwPJyIIfgG733LOmp QiE6QDYkmqNxC6Jh SZIbjUsjLkE0r3E7Qy5u TJ9tQU3nCGc2QU64RF49 lLRvv1J3pWE8X4QmCCQu yuyvhvfeiES2ADZn GEDzcD08iVQiIAhbIy5w m1M8x526WIQaNIHugY07 Gu4qaYhzLOErxISYgE7v fozah4pctjpfIaYx CLVwCAw2FNq5QTTemUeu JhRqJJV9TjH7HBY9vJSx zL4npXdqsgiyyY9zYsi+ XLnbFQZpifD1S7Ks Soe9QWDimLhtQX3sbRRg UOdoKy7rkTzswQvwXE5b DMJepjdrEYOtdP7pWMAf rJPgcJuaNJ1yXNDg llqpt711QhNdYZJ1WGRh zLGhV7LraS6jWmRpBXBm BAAeV2SalTKnWHpxO692 YZdpIxU3WUKbgpDs E1TxAESjpXnuFsZ3f6E7 Qn9AOW2EXWM4H9SuTxf7 JSUtsUfsEB6rfSAcPCix Ig9vyBlrcMliZP6r EDYvkwayUBFtdS9nZRKb vRVbwNxpMO7cGFCentge w191WwRdJID3CQBsgHYs P7HciI1dJaXwKSQd AAOdT9PvrVOrGFrhI154 HLevIjN5WMAcilNjG6Qy FXWlgGraQfS8u1Y6Yt7R UDwvdGQ+YN40fw60 Z2JwRcjpSqz5QVMrQYD1 iGD0cN5jKSHyAVojp9V7 kNR0O1IbmwQcnq2ij1qh HJHfDPzrU27tuEGg w8A7XEJctOX5ISAgnAbx OpFkaP42Aja+PGNvbGdy a5DjDaxgv2txt5ctlVn2 IjMwJSIgdmFsaWdu OYD8j3IjSw26Q48zVAls ZHRoPSIzMCUiIHZhbGln ml3zoF7uLn9+PGNvbCB3 tKF6fX5cSxSjArM3 ZAukU356PaHhgATqMjet l0pwk1bwiMc0FgOxLHWa lzYggPprSDN7v8KhGa90 Z3OjiIjlb6ArWtq2 pp85eIKlz5P2lXY8N4Kx LVIpkkgtyKMmcLroSK9p AOWstkecKVUxxR1lKNHf S4j4NoYoOxZ3NHsb F8NyveP9GWCyfUMlERRa hSBAxJ3qxywpp1tsltno CzMvCFXoEZw9UHg7YHXj oGufYsLvDOE1LuD5 OQL0fXEyeN6saUxdundj jJ4zDiw+PEa3t1uurSTo MQ0eoVZ3RB81IX36qPEy o4H3kSY0M4UlACDr tjohryossVV0NHHbYULk sR80Lb2jpRulCb3pZTFj LAN2VDOfuGRyJ3LgfZ4u GbIfRXBsXFRaA2Jy fMXoALkqA691GCkkGiZ4 IBWrpzPaB1EsEQLlfTem GqP6u6H1Xz0IRQ58ZQ85 MW29lBUuf1L2hVO5 G7EoKDDifkxmjbegiXA1 VKNoOJSviR04Ce7whBlj Ts0gTJXrSGC8SJChwAGt Y5UbiB5pJuNkGGPc SFBpJ6EpyWJzWQxmK002 WBkqZrP2FRIuxrCvM9Ej OJEqiJsyTpL1m1Q3Wc8Z Hr95SQ05NE00yQSs m1L5iSU0Z0HxSDMqjvqe igrpdRQ0AHHgYZNyjV96 Ln9gxVbkGj6dSIArQIC7 OJIerDLqQ6MazK1b RhAwJRPrYRLlL5LzfAVh WGguI321CQlcWvY4EROa bfYrH9HwXPLesDrxPfX1 i4I8Hv2XVVxdkqe5 H9GuOvzsoDN+KW42AXSa SV22uENkpMXuc9kmjKs7 HzOzYOZnGIH0zSqkOLes h0JsQOTvZ06oeVPq c2U (more content not included)... [facility] Coding Summary HTMLBase 64 HknhnqpuSFw9jUz+PGhl YWQ+TM1DIHWvS95fsWMs bE8FL5hWRS3IEWHHSFZV DE2TIH3pyZM3KLkfU6Ki biAv CxjcuUFnYL91YUh3AJT1 aSpbIGfhuO0hhMMlA4g5 EeXgNM95qQ31LWslJXOl GtF9KfDetmlecTPf P3ptBjMkpOVmQno+PHRh YmxlIHdpZHRoPScxMDAl NzKfxXqhAA8oEq4eNOCk LWNvbGxhcHNlOiBj l5ncRLToKNneCT0kuMll B6XfxOG2VDOay5l8Kz48 dHI+NVZbPHO8uTwcSDeg d547TzPlg8ksKTJ3 rMLfVPirFJD4Z38lk9G9 DTSkIGVqUCT8lVR0nR6k vArumgpcK0StsGCyGqG9 FDX4wQBaoA8ltMyy jgbtgC1zKjm+D73MZN1T VJIVFG3XLyf1T9YdEhog dHI+UM09JFQtMW50yVEs tPDmn8lhfZj0LxCw GTUjKBX4xPbuJGida7Aa LIReV12ggNHys0R2VJAd zDcqcEXvMyJjoMH9eM7j IGybeakek5zjysmd Pipcy1mdas89pR70G19d EBrzDIEjPRW1METlTEPt dCpzxb1ajT0fHk4+IDxj j8kjj9mtmZd4MrXe KWTegcYgpTcpBGC5y5Ga Ox09Z5MazLikh9FoFxe0 gp67eMOqs7O8kQB2FVna TCFdkY1cCFrnUhA2 BZKhEcMzlE23dZNtXPql Gm7wiPhlbNkrIO0zBXTg pikdMHTwvC6qABVdjCHt kLgcMH5kSZHlmpwv e711MoFwKBQ7EDNqeQXp B5CenE7iWwBmUVAeJPWh Z3ChhSCyHXbjD772JUje PdS0XBUbnfXvG2Bq OYJatWebGmL8v4H0Vb5V g0TcylgmTGF1WWriCWY4 MnXvDgVfPmV9F1SkFyp8 ESAxpDwxYA5xH3Aw RRTtnlkwywpwkFV1VHDe GYDqyH19wCMjGApnMt1h n6G1o525HXEcFCAhhK66 Xv0llOwpOAAqnSEI vC8qqkwrs3qudtthTmLl GFRmAIe0XJo2KXRxyTjs WoTtXNO3GyE1BQP7lSCm yD6ybVdebduyyQ4i Oyc+J80wdZ3rUOT5IFN6 ghvoVHGqnwJtYS22YB88 D9LcRwztdBBxkBD+PGRp qxGogPeeQQ8tHwUa n3mfp9AjPXcpF8OmRVSm QNsiRcq6WUYfDNA4bNM0 bD1iRCBpOGowl4V4qLN8 V0CftxWchs4xa3hv USVwFIglH94esHJpm5M9 GKAmcWI2IIObvHbyWjQm fX45And+TDMkhUayj2Is Azvox0rdj7splQj8 IjMwJSIgdmFsaWduPSJ0 s3OfEt70A42wPPvlIPXi HVFgLHVuBERzeWvcln8a uZ5aYu7+PGNvbCB3 qSM2kK8dDFWmVaM3NQyf H197DaYmrNVqCbanc6yg f3enaHk2IvXgZXMjinIt hZzxOOY9k4OdJa52 F71bRSxsOWMpWCNaJVPw NAQrcUkdcg8hkU1yLc4+ YP8cd7ktps52oV56yDW+ SEHyAPN6lMieCSyk YJXlbI6cODzhVeD6EIAd MtNevQ95cKWzMHxxDy5t jMbpoKtvNM7oRBHrqygd i644VlRed2itMNFp vBSiELprWEV6K03cn5R6 VEXqALHwYYT4fUZ0pS5e bGlnbjogbGVmdDsgdmVy cVjmONejOUewS675 IHRvcDsnPlBhdGllbnQg TiGtOIl2F6JmRwk8FXRl tMzlXA8mqSOeTUcjCs0u fKzopZqnMB7bOLQp jjckm284CbQjw8qsUPAh qJAhPZwfPZN8B59bq6F3 LGIkUUGrJQE9bGJ2yK8m bGlnbjogbGVmdDsg tcMmaKboVDixMXsqJ979 IHRvcDsnPkJpcnRoIERh aXN8ZX21NL80bGUhk8U3 oJP5D1AcMXVrbrwx zkkesBQ3OIEbNVZzzW78 Tx3pzYeoXl8kMSAuVMV8 KIGgzAMlG2QwmW9xRpAu SVCrPCUwQ4RcyOSv FLxyK256LBgbDeF5REFu wqEmF8JxPRTkzRbnPxO9 e2O6Dz8VU5A2HT80SC53 nPFjq7N0oNR8R5Sk DSXogvoausgneLN4MZIq LACglI32Tc9ywTmgCn3f MLLzPYY5TKVdcBRjS5Jf kL4zKoJgJUXgWOTe B3QmwKYgFEzyH552UAtg WgH6WKTbrgXiF2AyDRDp xTrgShX8q3U1Th9WVVf3 DK44SM10wLMmc1Z2 vEL3Q9ZsRXFdpxmwrnta eWM2UCIxNIItsU44Hd5e jNgfIb7vHWBoUZV7WPXv kJDuC0WjqO8mWyHn JYQhPAEaV2NyyCGmGLzc Z384XThvPtM5TCFevwFt K8JaNKTflDzbVpZ2y4S9 Zc7CWRIoDE02SDQ3 aRB9CH94OY51S0OcDnhb dGFibGU+PHRhYmxlIHdp ZHRoPScxMDAlJyBzdHls XQ9eLl6xPJErCZFf cTpinEOcHzZhl4kwZRKv XBxcQS7wqWfyN8LxcPY0 MGOtk5f4Ug08X02vM9Sk dXA+LCZumOH2mEU9 kJ9qJjNlIzI7GJquL892 FqYwrDCdDngmn5aov9yt gBo5YeW6PTKcomXuyAmm VRN0s1BdRa93Y59u IHdpZHRoPSIxNSUiIHZh fHcruw3okO0vCl1+PGNv cGJ9mYK1hU1cItCgFiL5 SZwmW615FkVthYQo Fmnoa8hbv9jfuQd0HjKc UKVlagRbgIwnUON5i9Gu Ty17T4SwzCsio7CgOgs2 vw84hVXvf3M5fVE8 Y5BlUGMroqivwITseOto NP3fHWGmwwkeKYHiuU2o FXPjU9e7EeHhVnN9TPns A5VzilW3JFGdcLTp HNfdLHE4I70uz6L7JEAc UTDiAOZ7gGL7rT9rsHbn bjogbGVmdDsgdmVydGlj YOirFJxwY370LVTs yZcoXLEnaO1qQVLkaLQn sGgrBJ3qMPKurzvzXuiD CU2LN77lQTSQC1XMEZMa KVGUQFV2R5FdMhu4 SKDcoLyrXA5ewNGhDZfy Ow9nyZqqcCaeSK7nMFTv wqtrNPFgvK8sOIAyeFBm dWyfJV9pODCagkvi k152CsEfTZQ6KLBbkKLh H7BkhF3dHuOtKSRoMLCt I9ViaUAqOPojT416RHbi BvV1PCXelsHiD9Ts CYJxtBfxEqV3q5P3Rb3u QK0zFC3kGCg4YF99MZ24 tIBzb4U7nOL1Q5UiZPHu wwserweqtMX6AZQe SOLymV85rKJqYYaxLo3r p3O7t679WSJdTHXzhA04 Dg8enTmdRIBcgDQIoR2k wctwd5gaxbqxTaCx ZLFvXGl9XNi3UZCrpNzn DoSsATE8HtM0RNF5nCVg gY2kkAhoakbwgK5wBic+ MHjaQFBqolV6E8Nj Sxh0PCAsiSooAU3umFJk QFnxIx9neIuczYzaBK9i KQHggswiBFUpbA1iHZEz vSSprEmgIC0pRLPs ptzrb264DxJuPRZ0SEKo fTHkV8GjhB4dMzVhLIHh UDWjZ4BcxLKjZAzpL300 FEylEqE6YSUnmkXc X5GoDEAfmZpcAdV0v8D1 Ay1SEM3EVZG4R5SqHhq6 KKKqoLgvRV4qhNDxEQgl Ow9kpGtlnWjuIC9n IKBmqxjrJOMbnD8rTDPy mMHumCznYL3nPOWgnrzc v996FtXwNRA0YATdwYVt D1NncY2dUxGwOODj EZRdI0SyjXCwXJciW261 VUvgYbJ8DWRdjoGrA9Zo FRYcdFvnXtT4y9M0Cw3E cKLuY1AzH4l5Q1Wd PjwvdHI+IA72WCCtEY98 dHXiuGVah7xkcKr9TaWe JIFmCUY0lMenTJjci0Hw AXGvI40tpLElw5S1 IGNvbGxhcHNlOyBlbXB0 vR7lVDfechdwa7xnqxxn Kjefr4wgrz82hG75V77a IHdpZHRoPSIzMCUi IMJdrQcvth9kzH4bDe9+ TFMelBW7yER9rH9zZyCv QzM8GEjqY515WlKogGZx Ujiyi7axi9trnRx2 IjIwJSIgdmFsaWduPSJ0 r8ReZs60P14eMTgmLLQu VJUxCHUnPEUltDtqhy0l rK1hSy8+KK8rt5ug xc05gK47vOM+PHRkIHN0 oSpeNCkzRVSvmG4uHJmb SoT0JOZrEyMdsC66uTOz YDnpRb4uvZwwoChw JB7hKVQjsvkti281TvTp q7miWOAkhCXxSFujBAO3 W08wn7J1OIWaHCKwNSB7 zNL5rW2kxWzrjnyx bGVmdDsgdmVydGljYWwt ISjqJ098QEMxfRvjOaGz mMCrV8ylpvNKMH9hZnid dGQ+WKQbEYG6jYoj FIgpBEXaxM3kJNPnY3q0 LqHxAiN4LVznC6AnolJ2 XUNrhKBxHJTfpJWKdM7j amigp1rdxjpbRzZp ENFuXWh9QSw7CTHezUju MnUsNTD1LvQ4UVU5nPIa jD4rsZiqnuwrkL6bZer+ RklOOjwvdGQ+PHRk MHL8aAxbNMtcGWDsaX3a NRUzX4s6OnIyBeL1EMjp P0PffmW2JOKaaNUyGEZu aOWPmZ1tjktph9jc axlpViCeMGUqTTp4OPn3 PGEyfIijIxNkHZF3RvD8 RLD8hXGufG8lvZmqmzqw oO9yRvq+TVJOOjwv dGQ+RQHrIME6qDvkAPqt OZDxrG5pEAOdI0o2HnLc UsT6ZClgS9MhsaC8YEAf cQEmVUCggMSYpH8l jmxoe7ohpdyrEaMwUVLu KLz0ZIh8VKYnvPebUiDy OVU8FcK0NJH7gRUryV4f mScpgwrqhV7oRzn+ RZU2FPD3XC61OJ96O6Zl PjwvdGFibGU+PHRhYmxl IHdpZHRoPScxMDAlJyBz bMzdCT0eXr8jTLUz LWN (more content not included)... Normal [facility] Consent Formson 06-22-2022 Consent Forms [id number] #[id number] [facility] .Auto Diff 1on 06-21-2022 Auto Pierce % 6 % Normal 12 [facility] Comment on above: Performed By: #### 1 [id number], [id number], [id number], [id number], 1181663, [id number], [id number] #### [facility] (DEFAULT) [address] [place] [address] 87280 Baso Abs# 0.0 x10 Normal 0.0-0.2 [facility] Comment on above: Performed By: #### 1 [id number], [id number], [id number], [id number], [id number], 1041822, 5256308, [id number] #### [facility] (DEFAULT) [address] [place] [address] 20140 Basophils/100 WBC (Bld) 0.2 % Normal 0.2-2.0 [facility] Comment on above: Performed By: #### 1 [id number], [id number], 4607745, [id number], [id number], 1545885, 3565857, [id number] #### [facility] (DEFAULT) [address] [place] [address] 32562 Eos Abs# 0.2 x10 Normal 0.0-0.4 [facility] Comment on above: Performed By: #### 1 [id number], [id number], 0282828, [id number], [id number], 6094042, 8847513, [id number] #### [facility] (DEFAULT) [address] [place] [address] 74150 Eosinophils/100 WBC (Bld) 2.2 % Normal 0.9-4.0 [facility] Comment on above: Performed By: #### 1 [id number], 5355142, 7715791, 51926995, [id number], 6560653, 4984951, [id number] #### [facility] (DEFAULT) [address] [place] [address] 31880 Lymph Abs# 2.1 x10 Normal 1.3-2.9 [facility] Comment on above: Performed By: #### 1 [id number], [id number], 3827586, 50282742, [id number], 5046493, 3032083, [id number] #### [facility] (DEFAULT) [address] [place] [address] Lymphocytes/100 WBC (Bld) 25 % Normal 14-48 [facility] Comment on above: Performed By: #### 1 [id number], 2519078, 6162620, 32768495, [id number], 4810418, 4510692, [id number] #### [facility] (DEFAULT) [address] [place] [address] Pierce Abs# 0.5 x10 Normal 0.0-0.8 [facility] Comment on above: Performed By: #### 1 [id number], 9765840, 6892808, 53530716, [id number], 2421558, 5350380, [id number] #### [facility] (DEFAULT) [address] [place] [address] Neut Abs# 5.5 x10 Normal 1.5-9.2 [facility] Comment on above: Performed By: #### 1 [id number], 4795867, 7597671, 48525072, 8457612143, 8969718, 9847835, [id number] #### [facility] (DEFAULT) [address] [place] [address] Neutrophils/100 WBC (Bld) 66 % Normal 44-88 [facility] Comment on above: Performed By: #### 1 [id number], 4839908, 7784567, 32094689, 0319268415, 4151073, 4534049, [id number] #### [facility] (DEFAULT) [address] [place] [address] Ambulance Noteon 06-21-2022 Ambulance Note [id number] Normal [facility] CBC w/ Auto Diffon Erythrocyte distribution width (RBC) [Ratio] 13.9 % Normal 11.5-15.0 [facility] Comment on above: Performed By: #### 1 [id number], 6159643, 5831947, 08195554, 0954433874, 1013321, 6595880, 8899963731 #### [facility] (DEFAULT) [address] [place] [address] Hematocrit (Bld) [Volume fraction] 43.5 % High 33.7-40.4 [facility] Comment on above: Performed By: #### 1 [id number], 0129030, 3306856, 30184327, 3479680601, 2369129, 8383734, 3764100801 #### [facility] (DEFAULT) [address] [place] [address] Hemoglobin (Bld) [Mass/Vol] 14.3 g/dL Normal 11.3-15.9 [facility] Comment on above: Performed By: #### 1 [id number], 7175839, 1592825, 05987365, 9768899075, 0696654, 9097253, 0148560597 #### [facility] (DEFAULT) [address] [place] [address]183 Man Diff? Auto Normal [facility] Comment on above: Performed By: #### 1 [id number], 4050742, 4988243, 28537601, 0512363042, 9125893, 0199092, 7905278509 #### [facility] (DEFAULT) [address] [place] [address] 13037 MCH (RBC) [Entitic mass] 29 pg Normal 24-34 [facility] Comment on above: Performed By: #### 1 [id number], 6430206, 2988835, 50194524, 3357218690, 1284291, 8397637, 3334266113 #### [facility] (DEFAULT) [address] [place] [address] 58675 MCHC (RBC) [Mass/Vol] 33 g/dL Normal 26-37 [facility] Comment on above: Performed By: #### 1 [id number], 6934524, 5181299, 51801651, 8439459942, 7986344, 5397977, 5962106008 #### [facility] (DEFAULT) [address] [place] [address] MCV (RBC) [Entitic vol] 90 fL Normal 81-100 [facility] Comment on above: Performed By: #### 1 [id number], 3841094, 0693761, 01308348, 3706930537, 4012433, 9006363, [id number] #### [facility] (DEFAULT) [address] [place] [address] Platelet 260 x10 Normal 138-427 [facility] Comment on above: Performed By: #### 1 [id number], 5736201, 2931477, 87514127, 3934832654, 9086733, 0871535, 6047772970 #### [facility] (DEFAULT) [address] [place] [address] Platelet mean volume (Bld) [Entitic vol] 10.1 fL Normal 6.3-10.2 [facility] Comment on above: Performed By: #### 1 [id number], 5069812, 5434669, 37736564, 7129594943, 6899412, 7515066, 1200175366 #### [facility] (DEFAULT) [address] [place] [address] RBC 4.86 x10 Normal 3.70-5.30 [facility] Comment on above: Performed By: #### 1 [id number], 8474678, 3490637, 83386233, 7737395859, 8536165, 4132831, 2969540507 #### [facility] (DEFAULT) [address] [place] [address] WBC 8.4 x10 Normal 3.5-10.5 [facility] Comment on above: Performed By: #### 1 774157947, 6368788, 9843401, 29960707, 3432577771, 7669201, 7310993, 7222489028 #### [facility] (DEFAULT) [address] [place] [address] Standardon 06-21-2022 eGFR Non AA >60 Invalid Interpretation Code [facility] Comment on above: Performed By: #### 1 [id number], 5631372, 7104253, 11849130, 2792522474, 4621412, 2777695, 0952560481 #### [facility] (DEFAULT) [address] [place] [address] eGFR AA >60 Invalid Interpretation Code [facility] Comment on above: Result Comment: Lead Javascript Engineer lesa Kidney disease could be indicated at eGFRs of less than 60 ml/min/1.73m2. Kidney Failure is indicated at less than 15 ml/min/1.73m2 Performed By: #### 1 607495731, 2976664, 6638828, 47717337, 7451640348, 7299531, 8389741, 4354898221 #### [facility] (DEFAULT) [address] [place] [address] Albumin [Mass/Vol] 4.0 g/dL Normal 3.5-5.0 [facility] Comment on above: Performed By: #### 1 [id number], 7234145, 2239369, 27965081, 5132468571, 7011424, 5649100, 3500930543 #### [facility] (DEFAULT) [address] [place] [address] 40173 Albumin/Globulin [Mass ratio] 1.4 {ratio} Normal 1.4-2.6 [facility] Comment on above: Performed By: #### 1 [id number], 6587348, 7489309, 97911179, 7972117213, 3768573, 3227594, 1000264467 #### [facility] (DEFAULT) [address] [place] [address] Alk Phos 111 IU/L High 32-91 [facility] Comment on above: Performed By: #### 1 704256282, 4243836, 5751672, 19872119, 6828711087, 7738880, 4854058, 6694253020 #### [facility] (DEFAULT) [address] [place] [address] 93772 ALT [Catalytic activity/Vol] 19.0 U/L Normal 14.0-54.0 [facility] Comment on above: Performed By: #### 1 [id number], 0072751, 8878787, 26685488, 1506765824, 4395644, 9606504, 3691494505 #### [facility] (DEFAULT) [address] [place] [address] Anion gap [Moles/Vol] 11.0 mmol/L Normal 5.0-19.0 [facility] Comment on above: Performed By: #### 1 [id number], 7493519, 4005503, 88394541, 5946004933, 0293444, 2242089, 1764118742 #### [facility] (DEFAULT) [address] [place] [address] 90293 AST [Catalytic activity/Vol] 18 U/L Normal 15-41 [facility] Comment on above: Performed By: #### 1 677159683, 9243972, 8259812, 70261072, 2193500215, 2890527, 9822656, 0538023500 #### [facility] (DEFAULT) [address] [place] [address] 49195 Bili Total 0.4 mg/dL Normal 0.3-1.2 [facility] Comment on above: Performed By: #### 1 925945274, 6591742, 9496762, 14189383, 2377177790, 3328950, 6650859, 5569784780 #### [facility] (DEFAULT) [address] [place] [address] 36717 Calcium [Mass/Vol] 9.0 mg/dL Normal 8.9-10.3 [facility] Comment on above: Performed By: #### 1 751607348, 8317790, 0658602, 75292135, 1475767266, 9200801, 4457351, 7042598467 #### [facility] (DEFAULT) [address] [place] [address] 04658 Chloride [Moles/Vol] 105 mmol/L Normal 101-111 [facility] Comment on above: Performed By: #### 1 [id number], 4689410, 9700177, 50715893, 3323017693, 7650941, 5522053, 6668373101 #### [facility] (DEFAULT) [address] [place] [address] 96920 CO2 [Moles/Vol] 24 mmol/L Normal 21-32 [facility] Comment on above: Performed By: #### 1 234538731, 3299276, 1823665, 13481880, 8858488323, 9198909, 3004551, 8454925725 #### [facility] (DEFAULT) [address] [place] [address] 48209 Creatinine [Mass/Vol] 0.67 mg/dL Normal 0.60-1.30 [facility] Comment on above: Performed By: #### 1 654676983, 9792344, 9216135, 54282026, 8595736742, 3499121, 4127050, 3162611652 #### [facility] (DEFAULT) [address] [place] [address] 37943 Globulin (S) [Mass/Vol] 2.8 g/dL Normal 1.5-4.3 [facility] Comment on above: Performed By: #### 1 110518673, 4692600, 4321825, 79062944, 1901677848, 6024664, 3645883, 7932305466 #### [facility] (DEFAULT) [address] [place] [address] 25902 Glucose [Mass/Vol] 115.0 mg/dL Normal 74.0-118.0 [facility] Comment on above: Performed By: #### 1 331994189, 7771507, 5495139, 16356875, 4725841189, 9933079, 6773359, 1937897629 #### [facility] (DEFAULT) [address] [place] [address] 01639 Osmolality 272 mOsm/L Invalid Interpretation Code [facility] Comment on above: Performed By: #### 1 403739905, 3676356, 4686533, 95640115, 8512292477, 3908298, 6078585, 6190756064 #### [facility] (DEFAULT) [address] [place] [address] 44817 Potassium [Moles/Vol] 4.0 mmol/L Normal 3.6-5.1 [facility] Comment on above: Performed By: #### 1 [id number], 8763530, 9273752, 75855499, 1647421376, 5805954, 9748958, 0270960016 #### [facility] (DEFAULT) [address] [place] [address] 74851 Protein [Mass/Vol] 6.8 g/dL Normal 6.5-8.1 [facility] Comment on above: Performed By: #### 1 233776041, 2900801, 9148942, 17164966, 6881419598, 0507708, 9463343, 9265632026 #### [facility] (DEFAULT) [address] [place] [address] 68178 Sodium [Moles/Vol] 136.0 mmol/L Normal 136.0-144.0 [facility] Comment on above: Performed By: #### 1 [id number], 0610084, 0616355, 81889856, 2749119758, 9227393, 7699598, 4161921419 #### [facility] (DEFAULT) [address] [place] [address] 56908 Urea nitrogen [Mass/Vol] 10 mg/dL Normal 8-26 [facility] Comment on above: Performed By: #### 1 [id number], 0179761, 0137483, 90893588, 4108281531, 7873710, 8006683, 2452938841 #### [facility] (DEFAULT) [address] [place] [address] 90165 Urea nitrogen/Creatinin e [Mass ratio] 15.0 mg/mg Normal 4.6-16.2 [facility] Comment on above: Performed By: #### 1 [id number], 9239946, 6620388, 60540613, 7631627297, 2150009, 6846662, 6033358341 #### [facility] (DEFAULT) [address] [place] [address] CT Chest W/Contraston 2021 CT Chest W/Contrast EXAMINATION: CT Chest W/Contrast HISTORY: Chest Pain COMPARISON: None. TECHNIQUE: CT examination of the chest following the administration of intravenous contrast. Coronal and sagittal reformations were performed. Dose reduction techniques were achieved by using automated exposure control and/or adjustment of mA and/or kV according to patient size and/or use of iterative reconstruction technique. FINDINGS: There are emphysematous changes. There is bibasilar atelectasis. The central airways are patent. No pleural effusion or pneumothorax is seen. The cardiac chambers appear normal in size. The thoracic aorta and pulmonary arteries are normal in caliber. There is no mediastinal, hilar, or axillary lymphadenopathy by CT size criteria. The thyroid and esophagus appear unremarkable. Images through the upper abdomen reveal the patient is status post cholecystectomy. No suspicious or aggressive bone lesions are seen. No acute fractures are seen. IMPRESSION: 1. Emphysematous changes with no acute cardiopulmonary abnormality. 2. No evidence of pulmonary embolism. Final Dictated by: Marko Mercedes Dictated DT/TM: 06/21/22 0:48 Signed (Electronic Signature): Marko Mercedes 06/21/22 0:53 am Technologist: ZORA Lynne [facility] D-Dimeron 06-21-2022 D-Dimer 0.26 mg/L FEU Normal 0.19-0.50 [facility] Comment on above: Result Comment: The INNOVANCE D-Dimer assay (Cutoff Value of > 0.50) is intended for the use as an aid in the diagnosis of venous thromboembolism (VTE) deep vein thrombosis (DVT) or pulmonary embolism (PE). The measurement of D-Dimer should not be used as an aid in the diagnosis of VTE in patients with: ? Therapeutic dose anticoagulant therapy for >24 hours ? Fibrinolytic therapy within previous 7 days ? Trauma or surgery within previous 4 weeks ? Disseminated malignancies ? Aortic aneurysm ? Sepsis, sever infections, pneumonia, severe skin infections ? Liver cirrhosis ? Performed By: #### 1 [id number], 8979682, 2817822, 68382684, 9199719297, 7012399, 9529757, 9064395390 #### [facility] (DEFAULT) [address] [place] [address] 94674 ED Clinical Summaryon 2021 ED Clinical Summary [facility] Emergency Department [address] [place] [address] ED Clinical Summary PERSON INFORMATION Name: JT FRIEDMAN Age: 47 Years Sex: FEMALE : 1975 MRN: Acct#: Visit Reason: Chest pain; CHEST PAIN Arrival: 06/20/2022 23:20:04 Discharge: 06/21/2022 02:38:00 LOS: 000 03:18 Check In: 06/20/2022 23:20:04 Checkout:06/21/2022 02:38:00 Address: [address] [place], [place] [address] PCP: PROVIDER INFORMATION Provider Role Assigned Unassigned Anthony Roca DO ED Provider 06/20/2022 23:23:20 Jay RN, Ann ED Nurse 06/20/2022 23:38:20 VITALS INFORMATION Vital Sign Triage Latest Temperature Tympanic Temperature Temporal Artery Pulse Rate 98 bpm 71 bpm O2 Sat 91 % 93 % Respiratory Rate 18 br/min 15 br/min Blood Pressure /62 mmHg /62 mmHg MEDICAL INFORMATION Medications Given: Medication Dose Route morphine (Morphine IV push) 4 mg IV Push methylPREDNISolone (methylPREDNISolone 80 mg injection) 80 mg IV Push Sodium Chloride 0.9% intravenous solution 500 mL 500 mL Initial Volume 20 mL/hr IV Left Wrist ondansetron (Zofran) 4 mg IV Push diphenhydrAMINE 25 mg IV Push acetaminophen (Tylenol) 1000 mg PO iohexol (Omnipaque 350.) 350 mg IV Push Allergy Information: shellfish; sulfa drug; naproxen PHYSICIAN DOCUMENTATION Patient: JT FRIEDMAN Age: 47 years Sex: FEMALE : 1975 Associated Diagnoses: Chest wall pain Author: Anthony Roca DO Basic Information Additional information: Chief Complaint from Nursing Triage Note : Chief Complaint 06/20/2022 23:31 EDT Chief Complaint Sternal-left sided chest pain started at work about 45 minutes prior to arrival. Patient given 324mg Aspirin and total of 3 SL Nitro. . History of Present Illness 47-year-old female to the emergency department chief complaint of left anterior chest discomfort. Patient states that it began approximately 45 minutes prior to arrival at work. Patient was given aspirin and nitro in route with mild improvement of her discomfort. Patient states she has had a mild cough but no fever no congestion cough has been dry. No recent travel no calf pain or swelling. Patient states when she was in her 20s she was taken to the hospital for chest pain and told that she may have had a heart attack. She has had no heart issues since. Denies being lightheaded or dizzy. No injury noted. Patient states it hurts to take a deep breath. Review of Systems Constitutional symptoms: Negative except as documented in HPI. Skin symptoms: Negative except as documented in HPI. Eye symptoms: Negative except as documented in HPI. ENMT symptoms: Negative except as documented in HPI. Respiratory symptoms: Shortness of breath, cough, No sputum production, Cardiovascular symptoms: Chest pain, no palpitations, no tachycardia, no syncope, no diaphoresis, no peripheral edema. Gastrointestinal symptoms: Negative except as documented in HPI. Genitourinary symptoms: Negative except as documented in HPI. Musculoskeletal symptoms: Negative except as documented in HPI. Neurologic symptoms: Negative except as documented in HPI. Psychiatric symptoms: Negative except as documented in HPI. Health Status Allergies: Allergic Reactions (Selected) Unknown Naproxen- No reactions were documented. Shellfish- No reactions were documented. Sulfa drug- No reactions were documented.. Medications: (Selected) Inpatient Medications Ordered Sodium Chloride 0.9% intravenous solution 500 mL: 20 mL/hr, IV Documented Medications Documented Multivitamin, generic: 1 tab, PO, Daily, 0 Refill(s) omeprazole 40 mg oral delayed release capsule: 40 mg = 1 cap(s), PO, Daily, 30 cap(s), 0 Refill(s). Past Medical/ Family/ Social History Medical history: No active or resolved past medical history items have been selected or recorded.. Surgical history: No active procedure history items have been selected or recorded.. Family history: No family history items have been selected or recorded.. Social history: Social & Psychosocial Habits Alcohol 06/20/2022 Alcohol Use: Current Frequency: 1-2 times per year Substance Abuse 06/20/2022 Substance use: Never Tobacco 06/20/2022 Smoking tobacco use: Current everyday tobacco Number used per day: 1 pack last 3 days Electronic Cigarette/Vaping 06/20/2022 Electronic Cigarette Use: Never . Problem list: No qualifying data available . Physical Examination Vital Signs Vital Signs 06/21/2022 1:30 EDT Peripheral Pulse Rate 69 bpm Heart Rate Monitored 65 bpm Respiratory Rate 14 br/min Systolic Blood Pressure 98 mmHg Diastolic Blood Pressure 58 mmHg LOW Mean Arterial Pressure, Cuff 71 mmHg SpO2 93 % Oxygen Flow Rate 2 L/min Oxygen Therapy Nasal cannula 06/21/2022 1:15 EDT Peripheral Pulse Rate 69 bpm Heart Rate Monitored 67 bpm Respiratory Rate 23 br/min HI Systolic Blood Pressure 97 mmHg Diastoli (more content not included)... Normal [facility] ED Note - Physicianon 2021 ED Note - Physician Patient: JT FRIEDMAN Age: 47 years Sex: FEMALE : 1975 Associated Diagnoses: Chest wall pain Author: Anthony Roca DO Basic Information Additional information: Chief Complaint from Nursing Triage Note : Chief Complaint 06/20/2022 23:31 EDT Chief Complaint Sternal-left sided chest pain started at work about 45 minutes prior to arrival. Patient given 324mg Aspirin and total of 3 SL Nitro. . History of Present Illness 47-year-old female to the emergency department chief complaint of left anterior chest discomfort. Patient states that it began approximately 45 minutes prior to arrival at work. Patient was given aspirin and nitro in route with mild improvement of her discomfort. Patient states she has had a mild cough but no fever no congestion cough has been dry. No recent travel no calf pain or swelling. Patient states when she was in her 20s she was taken to the hospital for chest pain and told that she may have had a heart attack. She has had no heart issues since. Denies being lightheaded or dizzy. No injury noted. Patient states it hurts to take a deep breath. Review of Systems Constitutional symptoms: Negative except as documented in HPI. Skin symptoms: Negative except as documented in HPI. Eye symptoms: Negative except as documented in HPI. ENMT symptoms: Negative except as documented in HPI. Respiratory symptoms: Shortness of breath, cough, No sputum production, Cardiovascular symptoms: Chest pain, no palpitations, no tachycardia, no syncope, no diaphoresis, no peripheral edema. Gastrointestinal symptoms: Negative except as documented in HPI. Genitourinary symptoms: Negative except as documented in HPI. Musculoskeletal symptoms: Negative except as documented in HPI. Neurologic symptoms: Negative except as documented in HPI. Psychiatric symptoms: Negative except as documented in HPI. Health Status Allergies: Allergic Reactions (Selected) Unknown Naproxen- No reactions were documented. Shellfish- No reactions were documented. Sulfa drug- No reactions were documented.. Medications: (Selected) Inpatient Medications Ordered Sodium Chloride 0.9% intravenous solution 500 mL: 20 mL/hr, IV Documented Medications Documented Multivitamin, generic: 1 tab, PO, Daily, 0 Refill(s) omeprazole 40 mg oral delayed release capsule: 40 mg = 1 cap(s), PO, Daily, 30 cap(s), 0 Refill(s). Past Medical/ Family/ Social History Medical history: No active or resolved past medical history items have been selected or recorded.. Surgical history: No active procedure history items have been selected or recorded.. Family history: No family history items have been selected or recorded.. Social history: Social & Psychosocial Habits Alcohol 06/20/2022 Alcohol Use: Current Frequency: 1-2 times per year Substance Abuse 06/20/2022 Substance use: Never Tobacco 06/20/2022 Smoking tobacco use: Current everyday tobacco Number used per day: 1 pack last 3 days Electronic Cigarette/Vaping 06/20/2022 Electronic Cigarette Use: Never . Problem list: No qualifying data available . Physical Examination Vital Signs Vital Signs 06/21/2022 1:30 EDT Peripheral Pulse Rate 69 bpm Heart Rate Monitored 65 bpm Respiratory Rate 14 br/min Systolic Blood Pressure 98 mmHg Diastolic Blood Pressure 58 mmHg LOW Mean Arterial Pressure, Cuff 71 mmHg SpO2 93 % Oxygen Flow Rate 2 L/min Oxygen Therapy Nasal cannula 06/21/2022 1:15 EDT Peripheral Pulse Rate 69 bpm Heart Rate Monitored 67 bpm Respiratory Rate 23 br/min HI Systolic Blood Pressure 97 mmHg Diastolic Blood Pressure 53 mmHg LOW Mean Arterial Pressure, Cuff 68 mmHg SpO2 93 % Oxygen Flow Rate 2 L/min Oxygen Therapy Nasal cannula 06/21/2022 1:10 EDT Peripheral Pulse Rate 64 bpm Respiratory Rate 20 br/min Systolic Blood Pressure 105 mmHg Diastolic Blood Pressure 57 mmHg LOW SpO2 94 % Oxygen Flow Rate 2 L/min Oxygen Therapy Nasal cannula 06/21/2022 0:38 EDT Peripheral Pulse Rate 72 bpm Respiratory Rate 20 br/min Systolic Blood Pressure 106 mmHg Diastolic Blood Pressure 69 mmHg SpO2 97 % Oxygen Flow Rate 2 L/min Oxygen Therapy Nasal cannula 06/20/2022 23:45 EDT Peripheral Pulse Rate 80 bpm Respiratory Rate 20 br/min Systolic Blood Pressure 105 mmHg Diastolic Blood Pressure 58 mmHg LOW SpO2 96 % Oxygen Flow Rate 2 L/min Oxygen Therapy Nasal cannula 06/20/2022 23:31 EDT Temperature Oral 36.7 DegC Peripheral Pulse Rate 98 bpm Respiratory Rate 18 br/min Systolic Blood Pressure 101 mmHg Diastolic Blood Pressure 62 mmHg SpO2 91 % LOW Oxygen Therapy Room air . Measurements 06/20/2022 23:36 EDT Weight Dosing 97.520 kg 06/20/2022 23:36 EDT Height/Length Dosing 160.020 cm 06/20/2022 23:31 EDT Height/Length Estimated 160.020 cm Weight Estimated 97.520 kg . General: Alert, no acute distress. Skin: Warm, dry. Head: Normocephalic, atraumatic. Neck: Supple. Eye: Pupils are (more content not included)... Normal [facility] ED Patient Summaryon 022 ED Patient Summary [facility] - Emergency Department [address] [place] [address] PATIENT DISCHARGE INSTRUCTIONS Patient Information Name: JT FRIEDMAN Age: 47 Years Date of : 1975 Reason For Visit: Chest pain; CHEST PAIN Arrival Time: 06/20/2022 23:20:04 Primary Care Physician: Attending Physician: Anthony Roca DO Comment: Visit Diagnosis: Diagnoses This Visit Chest pain (66789215) Chest wall pain (R07.89) Prescription Information: If you have been given a prescription for narcotics, seek immediate medical attention if you have any difficulty breathing or any sudden status changes such as confusion and sleepiness. If you or anyone you know is experiencing suicidal thoughts, mental health, alcohol and/or drug addiction problems; contact the [facility] 06/06 Crisis Hotline -Text 4HOPE ff 531249. If you received any narcotics, sedation, or any other medication that causes drowsiness for the next 24 hours, unless otherwise directed: ? Do not drive a car. ? Do not operate machinery such as power tools, lawn mowers, drills, sewing machines, or stoves ? Avoid alcoholic beverages and drugs for allergies, nerves, or sleep ? Do not make important personal or business decisions or sign any legal documents With: Address: When: Follow-up with your primary care physician in 1 to 2 days. Recommend outpatient stress test Within 3 to 5 days Comments: Call for follow up appointment Return if symptoms worsen Medication Information: The exam and treatment you received today in the [facility] Emergency Department were for an urgent problem and are not intended as complete care. It is important for you to follow up with a doctor, nurse practitioner, or physician?s rehabilitation assistant for ongoing care. If your symptoms become worse or you do not improve as expected and you are unable to reach your usual health care provider, you should return to the Emergency Department, we are available 24 hours a day. For those patients who have received Radiology results, the interpretation of your X-ray as given to you by our Emergency Department physician is only a preliminary report. The Radiologist will review your films and if there is a change in the diagnosis you will be notified by phone. Please make sure you have provided a working phone number so we can reach you if necessary. In the event that you had a lab culture while you were a patient in the Emergency Department, you will be notified by phone if there is a need to change your antibiotic. Please make sure you have provided a working phone number so we can reach you if necessary. [facility] has provided you with a complete list of medications post discharge. Please inform your rn primary care/provider of your visit and for further instruction on these medications. Any specific questions regarding your chronic medications and dosages should be discussed with your primary care physician(s) and/or pharmacist. New Medications Printed Prescriptions Misc Prescription (WORK NOTE) Seen in the ER on 06/20/2022. Off wrok remainder of shift on 06/20. Also off 06/21 if not improving. Refills: 0. Additional medications on your home medication list not specifically addressed. Please contact the ordering physician if you have questions about these medications. multivitamin (Multivitamin, generic) 1 tab Oral every day. omeprazole (omeprazole 40 mg oral delayed release capsule) 1 cap(s) Oral every day. Visit Information Allergies: Substance Reaction Symptoms Type Comments naproxen Drug sulfa drug Drug shellfish Food Vital Signs: Vitals and Measurements this Visit (last charted value for your 06/20/2022 visit) Vital Signs This Visit Temperature Oral: 36.7 DegC Peripheral Pulse Rate: 71 bpm Heart Rate Monitored: 71 bpm Respiratory Rate: 15 br/min Systolic Blood Pressure: 102 mmHg Diastolic Blood Pressure: 48 mmHg Mean Arterial Pressure, Cuff-Calculation: 66 mmHg Mean Arterial Pressure Cuff-Monitor: 90 mmHg SpO2: 93 % Oxygen Flow Rate: 2 L/min Oxygen Therapy: Room air Measurements This Visit Height/Length Dosin.020 cm Height/Length Estimated: 160.020 cm Weight Dosin.520 kg Weight Estimated: 97.520 kg Problems List: Problem Onset Comments No Problems found Patient Education Nonspecific Chest Pain, Adult Chest pain can be caused by many different conditions. It can be caused by a condition that is life-threatening and requires treatment right away. It can also be caused by something that is not life-threatening. If you have chest pain, it can be hard to know the difference, so it is important to get help right away to make sure that you do not have a serious condition. Some life-threatening causes of chest pain include: ? Heart attack. ? A tear in the body's main blood vessel (aortic diss (more content not included)... Normal [facility] Extra Redon 06-21-2022 Tube Collected Yes Invalid Interpretation Code [facility] Comment on above: Performed By: #### 1 [id number], 1287179, 7698208, 00054676, [id number], 4642061, 8775650, [id number] #### [facility] (DEFAULT) [address] [place] [address] Lipaseon 06-21-2022 Lipase Level 29.0 IU/L Normal 22.0-51.0 [facility] Comment on above: Performed By: #### 1 [id number], 5023034, 2502612, 68097140, 2624624449, 8634508, 2956713, [id number] #### [facility] (DEFAULT) [address] [place] [address] PTon 06-21-2022 INR Coag (PPP) [Relative time] {INR} Normal 0.91-1.11 [facility] Comment on above: Performed By: #### 1 [id number], 9056423, 1847734, 94104664, [id number], 7591356, 6356486, [id number] #### [facility] (DEFAULT) [address] [place] [address] PT 9.8 second(s) Normal 9.7-11.8 [facility] Comment on above: Performed By: #### 1 [id number], 2681061, 7220456, 74224166, 8631375220, 5088399, 9783834, [id number] #### [facility] (DEFAULT) [address] [place] [address] SARS-CoV-2 (COVID-19) PCRon 06-21-2022 Employed in healthcare? No Invalid Interpretation Code [facility] Comment on above: Performed By: #### 1 [id number], 6856606, 3623269, 95912158, 5124164472, 9446868, 1993348, [id number] #### [facility] (DEFAULT) [address] [place] [address] Group care resident? No Invalid Interpretation Code [facility] Comment on above: Performed By: #### 1 [id number], 2828521, 8812588, 77423446, 5660074630, 7189984, 0397744, [id number] #### [facility] (DEFAULT) [address] [place] [address] In ICU? No Invalid Interpretation Code [facility] Comment on above: Performed By: #### 1 [id number], 3551690, 7063055, 88360687, [id number], 1760536, 4724668, [id number] #### [facility] (DEFAULT) [address] [place] [address] status? Not Invalid Interpretation Code [facility] Comment on above: Performed By: #### 1 [id number], 2411457, 1058055, 94097636, 9003562244, 9041917, 9899522, [id number] #### [facility] (DEFAULT) [address] [place] [address] SARS-CoV-2 (COVID-19) RNA MELLO+probe Ql (Unsp spec) Not detected Normal Not Detected [facility] Comment on above: Result Comment: Perf ormed by PCR methodology. Performed By: #### 1 [id number], 5894160, 3484453, 23103655, 5627195723, 7485334, 2751897, [id number] #### [facility] (DEFAULT) [address] [place] [address] SARS-CoV-2 (COVID-19) RNA MELLO+probe Ql (Unsp spec) No Invalid Interpretation Code [facility] Comment on above: Performed By: #### 1 [id number], 7057787, 4474047, 88396774, 8435029175, 9118061, 9489012, [id number] #### [facility] (DEFAULT) [address] [place] [address] Symptomatic as defined by CDC? No Invalid Interpretation Code [facility] Comment on above: Performed By: #### 1 [id number], 9347175, 3727280, 63182049, 0067594093, 4599264, 7953889, [id number] #### [facility] (DEFAULT) [address] [place] [address] TnI HSon 06-21-2022 Troponin I High Sensitivity <2 Normal <=15 [facility] Comment on above: Order Comment: To be done 1 hour after first Troponin HS Result Comment: LT Male Baseline Delta 1Hr (Note pg/mL=ng/L) <20pg/mL 50-60% >20pg/mL 20% Female Baseline Delta 1Hr <15pg/mL 50-60% >15pg/mL 20% Other Baseline Delta 1Hr <18ng/mL 50-60% >18ng/mL 20% ([employer] Guidelines June 2018) Performed By: #### 1 [id number], 2097044, 7689049, 77145563, 8196020318, 8167717, 4881828, 7565087656 #### [facility] (DEFAULT) [address] [place] [address] Troponin I High Sensitivity 3 pg/mL Normal <=15 [facility] Comment on above: Result Comment: Male Baseline Delta 1Hr (Note pg/mL=ng/L) <20pg/mL 50-60% >20pg/mL 20% Female Baseline Delta 1Hr <15pg/mL 50-60% >15pg/mL 20% Other Baseline Delta 1Hr <18ng/mL 50-60% >18ng/mL 20% ([employer] Guidelines June 2018) Performed By: #### 1 [id number], 6390043, 6858367, 10219886, 0326821181, 3487517, 2038922, [id number] #### [facility] (DEFAULT) [address] [place] [address] Triage Panel 12on 06-21-2022 Triage Internal Control Pass [facility] Comment on above: Performed By: #### 1 [id number], 6640747, 8323028, 61714614, 2806652616, 4117337, 3931058, 0438026045 #### [facility] (DEFAULT) [address] [place] [address] [address] Scr Negative [facility] Comment on above: Performed By: #### 1 452642777, 2947784, 5114989, 59430641, 1990986687, 5092652, 3618076, [id number] #### [facility] (DEFAULT) [address] [place] [address]r Negative [facility] Comment on above: Performed By: #### 1 [id number], 4571477, 3200744, 48843041, 2524600549, 7038531, 3307307, 7615824284 #### [facility] (DEFAULT) [address] [place] [address] U Benzodia Scr Negative [facility] Comment on above: Performed By: #### 1 [id number], 4520652, 9049356, 50321734, 0536020330, 9772704, 8249159, 3951818280 #### [facility] (DEFAULT) [address] [place] [address] [address] Scrn Negative [facility] Comment on above: Performed By: #### 1 [id number], 0974761, 6923793, 08812826, 8195016495, 9278135, 5255892, [id number] #### [facility] (DEFAULT) [address] [place] [address] [facility] Comment on above: Performed By: #### 1 798290961, 9802840, 5144743, 70656563, 2297139812, 2957115, 4500442, 7310922406 #### [facility] (DEFAULT) [address] [place] [address] [address] Scr [address] [facility] Comment on above: Performed By: #### 1 [id number], 7602080, 9509780, 35864089, 6391673238, 3098570, 5869422, 8600034466 #### [facility] (DEFAULT) [address] [place] [address] [facility] Comment on above: Performed By: #### 1 576830857, 7871653, 3508485, 58649485, 0667436622, 4243642, 1224599, 4847048310 #### [facility] (DEFAULT) [address] [place] [address] [facility] Comment on above: Performed By: #### 1 654971381, 0250119, 1076764, 10503175, 4993594386, 5013926, 5150370, 3523370933 #### [facility] (DEFAULT) [address] [place] [address] [address] [facility] Comment on above: Performed By: #### 1 031638504, 7210663, 4795745, 63942208, 0342096325, 0416335, 6491737, 3260368349 #### [facility] (DEFAULT) [address] [place], [place] [address] U Phencyclidine Scr Negative [facility] Comment on above: Performed By: #### 1 [id number], 0194057, 7341756, 55102012, 1576616930, 6075191, 0910944, [id number] #### [facility] (DEFAULT) [address] [place] [address] U Propoxyphene Scr Negative [facility] Comment on above: Performed By: #### 1 [id number], 8676871, 5689335, 71596272, 9399347521, 4440581, 2577915, 4609176541 #### [facility] (DEFAULT) [address] [place] [address] U Tricyclic Antidepress Scr Negative [facility] Comment on above: Result Comment: Resu lts are to be used only for medical (ie, treatment) purposes only. Positive tests will not be sent out for confirmation. PROFILE?-V MEDTOX Scan? Drugs of Abuse Test System detects drug classes at the following cutoff concentrations: AMP Amphetamine (d-amphetamine): 500 ng/mL BAR Barbituates (Butabital): 200 ng/mL BZO Benzodiazepines (Nordiazepam): 150 ng/mL BUP Buprenorphine (Buprenorphine): 10 ng/mL CHAITANYA Cocaine (Benzoylecgonine): 150 ng/mL MAMP Methamphetamine (d-Methamphetamine): 500 ng/mL MTD Methadone (Methadone): 200 ng/mL OPI Opiates (Morphine): 100 ng/mL or 2000 ng/mL OXY Oxycodone (Oxycodone): 100 ng/mL PCP Phencyclidine (Phencyclidine): 25 ng/mL PPX Propoxyphene (Norpropoxyphene): 300 ng/mL THC Cannabinoids (40-hpv-9-carboxy- -THC): 50 ng/mL TCA Tricyclic-Antidepressants (Desipramine): 300 ng/mL Performed By: #### 1 [id number], 0301306, 0718106, 50071303, 7181689939, 9963109, 7517394, 4932738085 #### [facility] (DEFAULT) [address] [place] [address] [address] [facility] Comment on above: Performed By: #### 1 [id number], 8817573, 9891316, 66368688, 8848734768, 8253577, 3644180, 4025635843 #### [facility] (DEFAULT) [address] [place] [address] Cov[facility]-19 PCR [facility]on 02-12 SARS-CoV-2 (COVID-19) RNA MELLO+probe Ql (Unsp spec) Not detected Normal NOT DETECTED [facility] Comment on above: Result Comment: This test is not yet approved or cleared by the [place] FDA. When there are no FDA-approved or cleared tests available, and other criteria are met, FDA can make tests available under an emergency access mechanism called an Emergency Use Authorization (EUA). The EUA for this test is supported by the [place] of Health and Human Service's (HHS's) declaration that circumstances exist to justify the emergency use of in vitro diagnostics for the detection and/or diagnosis of the virus that causes COVID-19. This EUA will remain in effect (meaning this test can be used) for the duration of the COVID-19 declaration justifying emergency of IVDs, unless it is terminated or revoked by FDA (after which the test may no longer be used). When diagnostic testing is negative, the possibility of a false negative should be considered in the context of a patient's recent exposures and the presence of clinical signs and symptoms consistent with SARS-CoV-2. Performed By: #### [facility] #### [facility] [address] [place], [place] [address] Callum Miller Covid-19 PCR ([facility])on 10-14 EUA Statement SEE BELOW Normal [facility] Comment on above: Result Comment: This test is not yet approved or cleared by the [place] FDA. When there are no FDA-approved or cleared tests available, and other criteria are met, FDA can make tests available under an emergency access mechanism called an Emergency Use Authorization (EUA). The EUA for this test is supported by the [place] of Health and Human Service?s (HHS?s) declaration that circumstances exist to justify the emergency use of in vitro diagnostics for the detection and/or diagnosis of the virus that causes COVID-19. This EUA will remain in effect (meaning this test can be used) for the duration of the COVID-19 declaration justifying emergency of IVDs, unless it is terminated or revoked by FDA (after which the test may no longer be used). When diagnostic testing is negative, the possibility of a false negative should be considered in the context of a patients recent exposures and the presence of clinical signs and symptoms consistent with SARS-CoV-2. Performed By: #### C VDTB #### [facility] [address] [place] [address] Callum Miller SARS-CoV-2 (COVID-19) RNA MELLO+probe Ql (Unsp spec) Not detected Normal NOT DETECTED [facility] Comment on above: Result Comment: This test is not yet approved or cleared by the [place] FDA. When there are no FDA-approved or cleared tests available, and other criteria are met, FDA can make tests available under an emergency access mechanism called an Emergency Use Authorization (EUA). The EUA for this test is supported by the [place] of Health and Human Service's (HHS's) declaration that circumstances exist to justify the emergency use of in vitro diagnostics for the detection and/or diagnosis of the virus that causes COVID-19. This EUA will remain in effect (meaning this test can be used) for the duration of the COVID-19 declaration justifying emergency of IVDs, unless it is terminated or revoked by FDA (after which the test may no longer be used). Performed By: #### C VDTB #### [facility] [address] [place] [address] Callum Miller COVID-19 PCRon 07-16-2020 SARS-CoV-2 (COVID-19) RNA MELLO+probe Ql (Unsp spec) Not detected Normal Not Detected [facility] Comment on above: Result Comment: This nucleic acid amplification test was developed and its perfomance characteristics determined by [employer]. Nucleic acid amplification tests include PCR and TMA. This test has not been FDA cleared or approved. This test has been authorized by FDA under an Emergency Use Authorization (EUA). This test is only authorized for the duration of time the declaration that circumstances exist justifying the authorization of the emergency use of in vitro diagnostic tests for detection of SARS-CoV-2 virus and/or diagnosis of COVID-19 infection under section 564(b)(1) of the Act, 21 U.S.C. 360bbb-3(b) (1), unless the authorization is terminated or revoked sooner. When diagnostic testing is negative, the possibility of a false negative result should be considered in the context of a patient's recent exposures and the presence of clinical signs and symptoms consistent with COVID-19. An individual without symptoms of COVID-19 and who is not shedding SARS-CoV-2 virus would expect to have a negative (not detected) result in this assay. Performed By: #### C VDPCR #### [facility] [address] [place] [address] Callum Angela CBC AUTO DIFFon 06-12-2020 BASO # 0.0 103/ul Normal 0.0-0.1 [facility] Comment on above: Performed By: #### C BC #### [facility] [address] [place] [address] Callum Angela Basophils/100 WBC (Bld) 0.6 % Normal 0.2-2.0 [facility] Comment on above: Performed By: #### C BC #### [facility] [address] [place] [address] Callum Angela EO # 0.1 103/ul Normal 0.0-0.7 [facility] Comment on above: Performed By: #### C BC #### [facility] [address] [place] [address] Callum Angela Eosinophils/100 WBC (Bld) 1.6 % Normal 0.9-7.0 [facility] Comment on above: Performed By: #### C BC #### [facility] [address] [place] [address] Callum Angela Erythrocyte distribution width (RBC) [Ratio] 13.4 % Normal 11.0-15.0 [facility] Comment on above: Performed By: #### C BC #### [facility] [address] [place] [address] Callum Angela Hematocrit (Bld) [Volume fraction] 42.6 % Normal 36.0-48.0 [facility] Comment on above: Performed By: #### C BC #### [facility] [address] [place] [address] Callum Angela Hemoglobin (Bld) [Mass/Vol] 14.4 g/dL Normal 12.0-16.0 [facility] Comment on above: Performed By: #### C BC #### [facility] [address] [place] [address] Callumvenice Miller IG # 0.01 10e3/ul Normal 0.00-0.03 [facility] Comment on above: Performed By: #### C BC #### [facility] [address] [place] [address] Callumvenice Miller IG % 0.1 % Normal 0.0-0.5 [facility] Comment on above: Performed By: #### C BC #### [facility] [address] [place] [address] Callumvenice Miller LYMPH # 1.8 103/ul Normal 1.2-3.8 [facility] Comment on above: Performed By: #### C BC #### [facility] [address] [place] [address] Callum Miller Lymphocytes/100 WBC (Bld) 25.4 % Normal 20.5-60.0 [facility] Comment on above: Performed By: #### C BC #### [facility] [address] [place] [address] Callum Miller MANUAL DIFF REQ NO Normal [facility] Comment on above: Performed By: #### C BC #### [facility] [address] [place] [address] Callum Miller MCH (RBC) [Entitic mass] 30.8 pg Normal 26.7-34.0 [facility] Comment on above: Performed By: #### C BC #### [facility] [address] [place] [address] Callumvenice Miller MCHC (RBC) [Mass/Vol] 33.8 g/dL Normal 29.9-35.2 [facility] Comment on above: Performed By: #### C BC #### [facility] [address] [place] [address] Callumvenice Miller MCV (RBC) [Entitic vol] 91.0 fL Normal 81.0-99.0 [facility] Comment on above: Performed By: #### C BC #### [facility] [address] [id number] Callum Angela MONO # 0.4 103/ul Normal 0.3-0.8 [facility] Comment on above: Performed By: #### C BC #### [facility] [address] [place] [id number] Callum Angela Monocytes/100 WBC (Bld) 6.3 % Normal 1.7-12.0 [facility] Comment on above: Performed By: #### C BC #### [facility] [address] [place], [place] [address] Callum Angela NEUT # 4.6 103/ul Normal 1.4-6.5 [facility] Comment on above: Performed By: #### C BC #### [facility] [address] [place] [address] Callum Angela Neutrophils/100 WBC (Bld) 66.0 % Normal 43.0-75.0 [facility] Comment on above: Performed By: #### C BC #### [facility] [address] [place], [place] [address] Callumvenice Bunchen Platelet mean volume (Bld) [Entitic vol] 10.5 fL Normal 9.5-13.5 [facility] Comment on above: Performed By: #### C BC #### [facility] [address] [place], [place] [address] Callum Angela PLT 234 103/ul Normal 150-450 [facility] Comment on above: Performed By: #### C BC #### [facility] [address] [place], [place] [address] Callum Angela RBC 4.68 106/ul Normal 4.20-5.40 [facility] Comment on above: Performed By: #### C BC #### [facility] [address] [place] [address] Callum Angela WBC 6.9 103/ul Normal 4.0-11.0 [facility] Comment on above: Performed By: #### C BC #### [facility] [address] [place] [address] Callum Angela ER URINE PROFILEon 0 Bilirubin Ql (U) Negative Normal NEGATIVE [facility] Comment on above: Performed By: #### E RUR #### [facility] [address] [place] [address] Callum Angela Clarity (U) CLEAR Normal [facility] Comment on above: Performed By: #### E RUR #### [facility] [address] [place] [address] Callum Angela Color (U) YELLOW Normal YELLOW [facility] Comment on above: Performed By: #### E RUR #### [facility] [address] [place] [address] Callum Angela ERUAHD A micrscopic examination will be performed if indicated. Normal [facility] Comment on above: Performed By: #### E RUR #### [facility] [address] [place] [address] Callum Angela Glucose Ql (U) Negative Normal NEGATIVE [facility] Comment on above: Performed By: #### E RUR #### [facility] [address] [place] [address] Callum Angela Hemoglobin Ql (U) Negative Normal NEGATIVE [facility] Comment on above: Performed By: #### E RUR #### [facility] [address] [place] [address] Callum Angela Ketones Ql (U) Negative Normal NEGATIVE [facility] Comment on above: Performed By: #### E RUR #### [facility] [address] [place] [address] Callum Angela LEUKOCYTES Negative Normal NEGATIVE [facility] Comment on above: Performed By: #### E RUR #### [facility] [address] [place] [address] Callum Angela Nitrite Ql (U) Negative Normal NEGATIVE [facility] Comment on above: Performed By: #### E RUR #### [facility] [address] [place], [place] [address] Callum Angela pH (U) 6.0 [pH] Normal 5-9 [facility] Comment on above: Performed By: #### E RUR #### [facility] [address] [place], [place] [address] Callumvenice Miller Protein Ql (U) Negative Normal [facility] Comment on above: Performed By: #### E RUR #### [facility] [address] [place], [place] [address] Callum Miller SPEC GRAVITY 1.020 Normal 1.005-<=1.025 [facility] Comment on above: Performed By: #### E RUR #### [facility] [address] [place], [place] [address] Callum Miller UR MICRO IND NOT INDICATED Normal [facility] Comment on above: Performed By: #### E RUR #### [facility] [address] [place], [place] [address] Callum Miller Urobilinogen Qn (U) 0.2 {Audrey'U}/dL Normal [facility] Comment on above: Performed By: #### E RUR #### [facility] [address] [place], [place] [address] Callum Miller LACTATE/LACTIC ACIDon 2019 Lactate [Moles/Vol] 1.2 mmol/L Normal 0.7-2.0 [facility] Comment on above: Performed By: #### L ACT #### [facility] [address] [place], [place] [address] Callum Miller LIPASEon 06-12-2020 Lipase [Catalytic activity/Vol] 91.0 U/L Normal 23.0-300.0 [facility] Comment on above: Performed By: #### L IPA, CMP #### [facility] [address] [place], [place] [address] Callum Miller PROF 14(COMP METB)on 020 Albumin [Mass/Vol] 3.7 g/dL Normal 3.5-5.0 [facility] Comment on above: Performed By: #### L IPA, CMP #### [facility] [address] [place], [place] [address] Callum Angela Albumin/Globulin [Mass ratio] 1.1 {ratio} Normal [facility] Comment on above: Performed By: #### L IPA, CMP #### [facility] [address] [id number] Callum Angela ALP [Catalytic activity/Vol] 101 U/L Normal 38-126 [facility] Comment on above: Performed By: #### L IPA, CMP #### [facility] [address] [id number] Callum Angela ALT [Catalytic activity/Vol] 21 U/L Normal 9-52 [facility] Comment on above: Performed By: #### L IPA, CMP #### [facility] [address] [id number] Callum Angela Anion gap [Moles/Vol] 10.7 mmol/L Normal [facility] Comment on above: Performed By: #### L IPA, CMP #### [facility] [address] [address] Callum Angela AST [Catalytic activity/Vol] 11 U/L Critically low 14-36 [facility] Comment on above: Performed By: #### L IPA, CMP #### [facility] [address] [id number] Callum Angela Bilirubin [Mass/Vol] 0.4 mg/dL Normal 0.2-1.3 [facility] Comment on above: Performed By: #### L IPA, CMP #### [facility] [address] [id number] Callum Angela Calcium [Mass/Vol] 9.0 mg/dL Normal 8.4-10.2 [facility] Comment on above: Performed By: #### L IPA, CMP #### [facility] [address] [id number] Callum Angela Chloride [Moles/Vol] 106 mmol/L Normal 98-107 [facility] Comment on above: Performed By: #### L IPA, CMP #### [facility] [address] [id number] Callum Angela CO2 [Moles/Vol] 28.8 mmol/L Normal 22.0-30.0 [facility] Comment on above: Performed By: #### L IPA, CMP #### [facility] [address] [id number] Callum Angela Creatinine [Mass/Vol] 0.73 mg/dL Normal 0.52-1.04 [facility] Comment on above: Performed By: #### L IPA, CMP #### [facility] [address] [phone] Callum Angela EGFR-AF AUSTRIAN >60 Normal >=60 [facility] Comment on above: Performed By: #### L IPA, CMP #### [facility] [address] [id number] Callum Angela EGFR-NON AF AUSTRIAN >60 Normal >=60 [facility] Comment on above: Performed By: #### L IPA, CMP #### [facility] [address] [address] Callum Angela Globulin (S) [Mass/Vol] 3.3 g/dL Normal [facility] Comment on above: Performed By: #### L IPA, CMP #### [facility] [address] [address] Callum Angela Glucose [Mass/Vol] 129 mg/dL Critically high 74-106 [facility] Comment on above: Performed By: #### L IPA, CMP #### [facility] [address] [address] Callum Angela Potassium [Moles/Vol] 3.5 mmol/L Normal 3.4-5.0 [facility] Comment on above: Performed By: #### L IPA, CMP #### [facility] [address] [phone] Callum Angela Protein [Mass/Vol] 7.0 g/dL Normal 6.1-8.[address] [facility] Comment on above: Performed By: #### L IPA, CMP #### [facility] [address] [address] Callum Angela Sodium [Moles/Vol] 142 mmol/L Normal 137-[address] [facility] Comment on above: Performed By: #### L IPA, CMP #### [facility] [address] [place], [place] [address] Callum Angela Urea nitrogen [Mass/Vol] 10.0 mg/dL Normal 7.0-17.0 [facility] Comment on above: Performed By: #### L IPA, CMP #### [facility] [address] [place], [place] [address] Callum Angela Urea nitrogen/Creatinin e [Mass ratio] 13.7 mg/mg Normal [facility] Comment on above: Performed By: #### L IPA, CMP #### [facility] [address] [place], [place] [address] Callum Angela TROPONIN - Ion 06-12-2020 TROP <0.012 Normal <=0.034 [facility] Comment on above: Performed By: #### T ROP #### [facility] [address] [place], [place] [address] Callum Angela TROPONIN RANGE SEE BELOW Normal [facility] Comment on above: Result Comment: <0.0 34 ng/ml NEGATIVE 0.034-0.119 INDETERMINATE 0.120 AMI CUT OFF Performed By: #### T ROP #### [facility] [address] [place], [place] [address] Callum Miller Vital Signs Date Time Vital Sign Value Performing Clinician Rac[facility] 09-06-2022 13:20-0400 Diastolic blood pressure 80 mm[Hg] Toya Cooper MD Work Phone: [facility] 09-06-2022 13:20-0400 Heart rate 70 /min Toya Cooper MD Work Phone: [facility] 09-06-2022 13:20-0400 Respiratory rate 20 /min Toya Cooper MD Work Phone: [facility] 09-06-2022 13:20-0400 SaO2% (BldA) [Mass fraction] 94 % Toya Cooper MD Work Phone: [facility] 09-06-2022 13:20-0400 Systolic blood pressure 104 mm[Hg] Toya Cooper MD Work Phone: [facility] 09-06-2022 13:10-0400 Body temperature 97.3 [degF] Toya Cooper MD Work Phone: [facility] 09-06-2022 09:16-0400 Body height 160 cm Toya Cooper MD Work Phone: [facility] 09-06-2022 09:16-0400 Body mass index (BMI) [Ratio] 37.02 kg/m2 Toya Cooper MD Work Phone: [facility] 09-06-2022 09:16-0400 Body weight 94.8 kg Toya Cooper MD Work Phone: [facility] 08-30-2022 11:35-0400 Body height 160 cm [facility] 08-30-2022 11:35-0400 Body mass index (BMI) [Ratio] 37.02 kg/m2 [facility] [address] [facility] 08-30-2022 11:35-0400 Body weight 94.8 kg [facility] 3 [facility] Encounters Encounter Date Encounter Type Care Provider Facility Start: 03-14-2024 End: 03-18-2024 ambulatory SHAHIDA [facility]resp[facility] Start: 02-27-2024 End: 03-14-2024 ambulatory [facility] Start: 01-13-2024 End: 02-13-2024 ambulatory [facility] Start: 12-19-2023 End: 01-13-2024 ambulatory [facility] Start: 11-15-2023 End: 12-15-2023 [facility] Start: 10-17-2023 End: 11-14-2023 [facility] Start: 10-13-2023 End: 11-14-2023 ambulatory [facility] Start: 09-06-2022 End: 09-06-2022 ambulatory [facility] Start: 09-06-2022 End: 09-06-2022 Subsequent hospital visit by physician Toya Cooper MD Work Phone: [facility] Comment on above: Epigastric abdominal pain; History of colonic polyps Start: 08-30-2022 End: 09-04-2022 ambulatory [facility] Start: 08-30-2022 End: 09-03-2022 Subsequent hospital visit by physician Lita Chacon Rm 3 [facility] Pre-Admit Testing Start: 02-25-2021 End: 02-25-[address] DOCTOR VALENTIN Facility:H1 Start: 10-24-2020 End: 10-25-2020 ambulatory [facility] Facility:H1 Start: 07-15-2020 End: 07-16-2020 [facility] Facility:H1 Start: 06-12-2020 End: 06-12-[address] BEATRIZ LEWIS Facility:H1 Start: 07-23-2018 End: 07-23-2018 Emergency department patient visit [facility] Procedures Date Procedure Procedure Detail Performing Clinician Start: 09-06-2022 Colonoscopy Toya preston MD Work Phone: Start: 07-23-2018 [facility] Plan of Treatment Date Care Activity Detail Author Start: 09-06-2032 Screening for malignant neoplasm of colon [facility] Start: 07-23-2028 DTaP/Tdap/Td vaccine (2 - Td or Tdap) DTaP/Tdap/Td vaccine (2 - Td or Tdap) [facility] Start: 09-24-2022 End: 09-24-2022 Patient encounter procedure 09/24/2022 Office Visit Gastroenterology Darcy Proctor, BRANCH OFFICER - BUILDING EQUIPMENT OPERATOR [address] [facility] [address] [place] [address] [facility] Start: 09-06-2022 End: 09-06-2022 Admission to same day surgery center 09/06/2022 Surgery Endoscopy Toya Cooper MD [address] [place] [address] EGD BIOPSY [facility] Comment on above: EGD BIOPSY Start: 09-06-2022 End: 09-06-2022 Anesthesia consultation 09/06/2022 Anesthesia Event Endoscopy Sherrie Koenig MD [address] [facility] [address] [place] [id number] [facility] Start: 09-06-2022 End: 09-06-2022 Colonoscopy flx dx w/collj spec when pfrmd [facility] Start: 09-06-2022 End: 09-06-2022 Egd transoral biopsy single/multiple [facility] Start: 09-06-2022 Subsequent hospital visit by physician 09/06/2022 Hospital Encounter Endoscopy Toya Cooper MD [address] [place] [address] [facility] Start: 06-14-2022 Influenza vaccination Flu vaccine (#1) [employer] Start: 2020 Screening for malignant neoplasm of colon [facility] Start: 2010 Diabetes screen Diabetes screen [facility] [employer] Start: 1993 Hepatitis C screening [facility] Start: 1990 HIV screening HIV screen [facility] [employer] Start: 1987 Depression Screen Depression Screen [facility] Start: 1985 Lipid panel [facility]ids [facility] Start: 1981 Pneumococcal 0-64 years Vaccine (1 - PCV) Pneumococcal 0-64 years Vaccine (1 - PCV) [employer] Start: 1975 COVID-19 Vaccine (#1) COVID-19 Vaccine (#1) [employer] Oxygen therapy [Minimum Data Set] Initiate Oxygen Therapy Protocol Respiratory Care Routine Daily until discontinued starting 09/06/2022 [employer] Phone: Comment on above: Daily until discontinued starting 2021 Surgical Pathology Surgical Path ology Lab Routine Epigastric abdominal pain History of colonic polyps Release Upon Ordering for 1 Occurrences starting 09/06/2022 [employer] Phone: Comment on above: Release Upon Ordering for 1 Occurrences starting 09/06/2022 End: 09-06-2022 SURGICAL PATHOLOGY REPORT SURGICAL PATHOLOGY REPORT Lab Routine Once for 1 Occurrences starting 09/06/2022 until 09/06/2022 [employer] Phone: Comment on above: Once for 1 Occurrences starting 09/06/20 until 09/06/2022 Immunizations Immunization Date Immunization Notes Care Provider Razia johnson 07-23-2018 tetanus toxoid, redu geronimo diphtheria toxoid, and acellular pertussis vaccine, adsorbed [facility] 3 [employer] Phone: Payers Date Payer Category Payer Unknown [id number] 2021 Unknown [id number] 2020 Unknown [id number] 1975 Unknown [id number] 2.16.84 [id number] 1975 Unknown [id number] 2.16.84 [id number] 1975 Unknown [id number] 2.16.84 [id number] 1975 Unknown [id number] 2.16.84 [id number] 1975 Unknown [id number] 2.16.8 [id number] 1975 Unknown [id number] 2.16.8 [id number] 1975 Unknown [id number] 2.16.8 [id number] 1975 Unknown [id number] 2.16.8 [id number] 1975 Unknown [id number] 2.16.8 [id number] 1975 Unknown [id number] 2.16.8 [id number] 1975 Unknown [id number] 2.16.84 [id number] 1975 Unknown [id number] 2.16.84 [id number] 1959 Unknown [id number] Social History Date Type Detail Facility Start: 08-10-2022 Tobacco smoking stat [facility] Smokes tobacco daily [employer] History of tobacco use Cigarette Smoker [facility] [employer] Phone: Start: 08-10-2022 Cigarettes smoked current (pack per day) - Reported 1 [employer] Phone: Start: 08-10-2022 Tobacco use and exposure Smoke less tobacco non-user [employer] Phone: Start: 08-30-2022 End: 09-06-2022 Alcohol intake Ex-drinker (finding) [employer] Phone: Start: 07-23-2018 Alcohol Comment once in a blue javier [employer] Phone: Start: 1975 Sex Assigned At Not on file [facility] [employer] Phone: Start: 08-20-2022 End: 09-06-2022 Exposure to SARS-CoV-2 (event) Not sure [employer] Phone: Hospital Discharge instructions 09-06-2022 Discharge Instructions Note Date & Type Note Facility 09-06-2022 Hospital Discharg e instructions Radha Monzon RN - 09/06/2022 12:35 PM EDT Images from the original note were not included. To see in the office in the next 6 weeks Antireflux measures High-fiber diet, fiber supplements and precautions to avoid constipation Sedation or General Anesthesia, Adult Care After Refer to this sheet in the next 24 hours. These instructions provide you with information on caring for yourself after your procedure. Your caregiver may also give you more specific instructions. Your treatment has been planned according to current medical practices, but problems sometimes occur. Call your caregiver if you have any problems or questions after your procedure. HOME CARE INSTRUCTIONS Do not participate in any activities that require you to be alert or coordinated. Do not: Drive. Swim. Ride a bicycle. Operate heavy machinery. Cook. Use power tools. Climb ladders. Work at heights. Take a bath. Do not drink alcohol. Do not make any important decisions or sign legal documents. Stay with an adult. The first meal following your procedure should be light and small. Avoid solid foods if you feel sick to your stomach (nauseous) or if you throw up (vomit). Drink enough fluids to keep your urine clear or pale yellow. Only take your usual medicines or new medicines if your caregiver approves them. Only take syci-jlk-dggghst or prescription medicines for pain, discomfort, or fever as directed by your caregiver. Keep all follow-up appointments as directed by your caregiver. SEEK IMMEDIATE MEDICAL CARE IF: You are not feeling normal or behaving normally after 24 hours. You have persistent nausea and vomiting. You are unable to drink fluids or eat food. You have difficulty urinating. You have difficulty breathing or speaking. You have blue or chandra skin. There is difficulty waking or you cannot be woken up. You have heavy bleeding, redness, or a lot of swelling where the sedative or anesthesia entered your skin (intravenous site). You have a rash. MAKE SURE YOU: Understand these instructions. Will watch your condition. Will get help right away if you are not doing well or get worse. Document Released: 10/31/2006 Document Revised: 05/01/2013 Document Reviewed: 02/28/2013 [facility] Patient Information 2013 [facility]. EGD DISCHARGE INSTRUCTIONS Activity: Rest today. No driving, operating machinery, or making any important decisions today. May resume normal activity tomorrow. Diet: Following EGD eat slowly, chew food well, cut food into small pieces-Avoid greasy, spicy, crunchy foods X 48 hours. Call your Doctor if you have any of the following: -Passing blood rectally or vomiting blood (it may be red or black). -Persistent nausea/vomiting -Severe abdominal or chest pain not relieved with passing gas -Fever of 100 degrees or more -Redness or swelling at the IV site -Severe sore throat or neck pain Colonoscopy: What to Expect at Home Your Recovery After you have a colonoscopy, you will stay at the clinic for 1 to 2 hours until the medicines wear off. Then you can go home, but you will need to arrange for a ride. Your doctor will tell you when you can eat and do your other usual activities. Your doctor will talk to you about when you will need your next colonoscopy. The results of your test and your risk for colorectal cancer will help your doctor decide how often you need to be checked. After the test, you may be bloated or have gas pains. You may need to pass gas. If a biopsy was done or a polyp was removed, you may have streaks of blood in your stool (feces) for a few days. This care sheet gives you a general idea about how long it will take for you to recover. But each person recovers at a different pace. Follow the steps below to get better as quickly as possible. How can you care for yourself at home? Activity Rest as much as you need to after you go home. You should be able to go back to your usual activities the day after the test. Diet Follow your doctor s directions for eating. Drink plenty of fluids (unless your doctor has told you not to) to replace the fluids that were lost during the colon prep. Do not drink alcohol. Medicines If polyps were removed or a biopsy was done during the test, your doctor may tell you not to take aspirin or other anti-inflammatory medicines, such as ibuprofen (Advil, Motrin) and naproxen (Aleve), for a few days. Other instructions For your safety, you should not drive or operate machinery until the medicine effects are gone and you can think clearly. Your doctor may tell you not to drive or operate machinery until the day after your test. Do not sign legal documents or make major decisions until the medicine effects are gone and you can think clearly. The anesthesia medicine can make it hard for you to fully understand what you are agreeing to. Follow-up care is a heller part of your treatment and safety. Be sure to make and go to all appointments, and call your doctor if you are having problems. It's also a good idea to know your test results and keep a list of the medicines you take. Call your Doctor if you have any of the following: Passing blood rectally or vomiting blood (it may be red or black). Persistent nausea or vomiting. Severe abdominal or chest pain, not relieved by passing gas. Fever of 100 or more, chills or excessive sweating. Redness or swelling at the IV site. If you experience shortness of breath or severe chest pain, call 911. Where can you learn more? Go to [email or web address] and sign in to your [employer] account. Enter E264 in the Search Health Information box to learn more about Colonoscopy: What to Expect at Home. If you do not have an account, please click on the Sign Up Now link. [employer]. Care instructions adapted under license by [employer]. This care instruction is for use with your licensed healthcare professional. If you have questions about a medical condition or this instruction, always ask your healthcare professional. [employer] disclaims any warranty or liability for your use of this information. Content Version: 9.9.017998; Last Revised: January 03, 2013 Heartburn/Anti-reflux instructions Definition Heartburn is a burning sensation in the lower chest. It is the main symptom of gastroesophageal reflux disease (GERD). Causes When you eat, food travels down the esophagus to the stomach. The muscle between the esophagus and stomach lets food enter the stomach. When this muscle weakens, stomach acid flows into the esophagus. This causes a burning sensation, called heartburn. Other causes of GERD include: Conditions that: Interfere with food passing through the esophagus Cause excess acid production Possible genetic factor Symptoms Heartburn symptoms usually occur after overeating or lying down after a big meal. The symptoms may last for a few minutes or a few hours. The severity of symptoms depends on the: Reason the muscle is weakened Amount of acid entering the esophagus Amount of saliva to neutralize the acid Symptoms include: Burning feeling that starts in the lower chest and moves up the throat Feeling that food is coming back up Sour or bitter taste in the throat Pain that increases when bending over, lying down, exercising, or lifting heavy objects Other symptoms and complications of reflux include: Sore throat Hoarseness Chronic cough Feeling of a lump in the throat Asthma Hoarse voice ( laryngitis ) Waking up with a sensation of choking If reflux persists, the acid can damage the esophagus. Symptoms of esophageal damage include: Bleeding and ulcers in the esophagus Difficulty swallowing Vomiting blood Black or tarry stools Inflammation and scarring of the esophagus Giron's esophagus This is a precancerous condition of the esophagus that has no unique symptoms, but can be diagnosed by endoscopic exams. Dental problems (due to the effect of the stomach acid on the tooth's enamel) Treatment: Treatment aims to decrease the number of episodes of heartburn and its complications. This focuses on: Stopping the flow of acid back into the esophagus Decreasing production of stomach acid Treatment may include: Lifestyle Changes Lifestyle changes may include: Keep a food diary of what you eat and what the reaction is. Make gradual changes to your diet and record the results. Avoid foods that may cause symptoms, such as: High-fat foods Fried foods Spicy foods Onions and garlic Chocolate Peppermint Candler fruits Tomatoes Peppers Alcohol Coffee Carbonated drinks Eat smaller portions. Allow at least 2-3 hours between meals and lying down. Lose weight . If you smoke, quit . Avoid belts and clothing that are too tight. This may increase pressure on the abdomen. Elevate head of bed 6-8 inches. Manage stress Let your doctor know what medications you are taking; some medications (particularly anti-inflammatories) can worsen GERD (heartburn) symptoms. PATIENT INSTRUCTIONS DIVERTICULOSIS FOLLOW-UP: Please make an appointment with your physician as directed. Call your physician immediately if you have any fevers greater than 102.5, increasing abdominal pain, GI bleeding (from the colon or rectum),or nausea/vomiting. CAUSE: Some people may have congenital diverticulosis, but most people develop diverticulosis around or after age 40 due to a low-fiber, high-fat diet, along with inadequate fluid intake. This is very prevalent in the industrialized world where we eat a lot of processed, low fiber foods. Diverticuli develop due to firm stool and high pressures in the colon, along with secondary spasm, which causes outpouchings to occus where the small arteries penetrate the wall of the colon to feed the internal lining. These occur most commonly on the left side and lower portions of the colon. Diverticuli can then cause bleeding from the arteries at these sites of weakness when they rupture or the diveritculi can get blocked with stool and debris and become obstructed, causing diverticulosis, which is due to an infection. When these are infected, diverticulitis, it is often treated with antibiotics and bowel rest, but when severe, recurrent, or if rupture of the colon occurs, it may require surgery. Following appropriate dietary changes and taking the proper precautions is therefore very important. DIET: You should increase your dietary fiber intake and take a fiber supplement twice a day. Make sure that you are taking a supplement that is just fiber and is not a laxative, which should be noted on the package. Starting a fiber supplement may cause increased gas, more frequent bowel movements, and distension at first but this should improve after a couple of weeks. Try to eat whole wheat breads and pasta, more fruits and vegetables, along with brown rice and plenty of fluids. Avoid small undigestible food items that could get stuck in these outpouchings, such as unpopped popcorn kernals, whole corn, small undigestible seeds, etc.. ACTIVITY: Exercise is also a great way to prevent constipation and is encouraged. It may also help prevent progression of your diverticulosis. Always make sure you take in plenty of fluids when exercising. MEDICATIONS: Take an [id number] fiber supplement as noted above twice daily. If your symptoms don't improve with fiber and dietary changes alone your physician may also recommend psyllium or methylcellulose as well. If your physician has placed you on an antibiotic it is critical that you take the full course of these, even if your symptoms have improved, and that you not miss any doses. QUESTIONS: Please feel free to call your physician or the hospital miscellaneous machine operator if you have any questions, and they will be glad to assist you. If you have further questions it may also be helpful to meet with a dietitician. High-Fiber Diet What Is Fiber? Dietary fiber is a form of carbohydrate found in plants that cannot be digested by humans. All plants contain fiber, including fruits, vegetables, grains, and legumes. Fiber is often classified into two categories: soluble and insoluble. Soluble fiber draws water into the bowel and can help slow digestion. Examples of foods that are high in soluble fiber include oatmeal, oat bran, barley, legumes (eg, beans and peas), apples, and strawberries. Insoluble fiber speeds digestion and can add bulk to the stool. Examples of foods that are high in insoluble fiber include whole-wheat products, wheat bran, cauliflower, green beans, and potatoes. Why Follow a High-Fiber Diet? A high-fiber diet is often recommended to prevent and treat constipation , hemorrhoids , diverticulitis , and irritable bowel syndrome . Eating a high-fiber diet can also help improve your cholesterol levels, lower your risk of coronary heart disease , reduce your risk of type 2 diabetes , and lower your weight. For people with type 1 or 2 diabetes, a high-fiber diet can also help stabilize blood sugar levels. How Much Fiber Should I Eat? A high-fiber diet should contain 20-35 grams of fiber a day. This is actually the amount recommended for the general adult population; however, most Americans eat only 15 grams of fiber per day. Digestion of Fiber Eating a higher fiber diet than usual can take some getting used to by your body's digestive system. To avoid the side effects of sudden increases in dietary fiber (eg, gas, cramping, bloating, and diarrhea), increase fiber gradually and be sure to drink plenty of fluids every day. Tips for Increasing Fiber Intake Whenever possible, choose whole grains over refined grains (eg, brown rice instead of white rice, whole-wheat bread instead of white bread). Include a variety of grains in your diet, such as wheat, rye, barley, oats, quinoa, and bulgur. Eat more vegetarian-based meals. Here are some ideas: black mesa burgers, eggplant lasagna, and veggie tofu stir-benson. Choose high-fiber snacks, such as fruits, popcorn, whole-grain crackers, and nuts. Make whole-grain cereal or whole-grain toast part of your daily breakfast regime. When eating out, whether ordering a sandwich or dinner, ask for extra vegetables. When baking, replace part of the white flour with whole-wheat flour. Whole-wheat flour is particularly easy to incorporate into a recipe. High-Fiber Diet Eating Guide Food Category Foods Recommended Notes Grains Whole-grain breads, muffins, bagels, or kevin bread [place] bread Whole-wheat crackers or crisp breads Whole-grain or bran cereals Oatmeal, oat bran, or grits Wheat germ Whole-wheat pasta and brown rice Read the ingredients list on food labels. Look for products that list whole as the first ingredient (eg, whole-wheat, whole oats). Choose cereals with at least 2 grams of fiber per serving. Vegetables All vegetables, especially asparagus, mesa sprouts, broccoli, [place] sprouts, cabbage, carrots, cauliflower, celery, corn, greens, green beans, green pepper, onions, peas, potatoes (with skin), snow peas, spinach, squash, sweet potatoes, tomatoes, zucchini For maximum fiber intake, eat the peels of fruits and vegetablesjust be sure to wash them well first. Fruits All fruits, especially apples, berries, grapefruits, mangoes, nectarines, oranges, peaches, pears, dried fruits (figs, dates, prunes, raisins) Choose raw fruits and vegetables over juice, cooked, or cannedraw fruit has more fiber. Dried fruit is also a good source of fiber. Milk With the exception of yogurt containing inulin (a type of fiber), dairy foods provide little fiber. Add more fiber by topping your yogurt or cottage cheese with fresh fruit, whole grain or bran cereals, nuts, or seeds. Meats and Beans All beans and peas, especially Garbanzo beans, kidney beans, lentils, woody beans, split peas, and damian beans All nuts and seeds, especially almonds, peanuts, [place] nuts, cashews, peanut butter, walnuts, sesame and sunflower seeds All meat, poultry, fish, and eggs Increase fiber in meat dishes by adding damian beans, kidney beans, black-eyed peas, bran, or oatmeal. If you are following a low-fat diet, use nuts and seeds only in moderation. Fats and Oils All in moderation Fats and oils do not provide fiber Snacks, Sweets, and Condiments Fruit Nuts Popcorn, whole-wheat pretzels, or trail mix made with dried fruits, nuts, and seeds Cakes, breads, and cookies made with oatmeal or whole-wheat flour Most snack foods do not provide much fiber. Choose snacks with at least 2 grams of fiber per serving. Last Reviewed: January 2011 Carmen Dixon MS, MPH, RD Updated: 02/09/2011 documented in this encounter [facility] [employer] Work Phone: History of Present illness Narrative 08-30-2022 Ingrid Johnson RN - 08/30/2022 8:30 AM EDT Note Date & Type Note Facility 08-30-2022 History of Present illness Narrative Pre-op Instructions For Out-Patient Endoscopy Surgery Medication Instructions: Please stop herbs and any supplements now (includes vitamins and minerals). Please contact your surgeon and prescribing physician for pre-op instructions for any blood thinners. If you have inhalers/aerosol treatments at home, please use them the morning of your surgery and bring the inhalers with you to the hospital. Please take the following medications the morning of your surgery with a sip of water: None. Surgery Instructions: After midnight before surgery: Do not eat or drink anything, including water, mints, gum, and hard candy. You may brush your teeth without swallowing. No smoking, chewing tobacco, or street drugs. Please shower or bathe before surgery. Please do not wear any cologne, lotion, powder, jewelry, piercings, perfume, makeup, nail gambian, hair accessories, or hair spray on the day of surgery. Wear loose comfortable clothing. Leave your valuables at home. Bring a storage case for any glasses/contacts. An adult who is responsible for you MUST drive you home and should be with you for the first 24 hours after surgery. The Day of Surgery: Arrive at [facility] at the time directed by your surgeon and check in at the desk. If you have a living will or healthcare power of transactional attorney, please bring a copy. You will be taken to the pre-op holding area where you will be prepared for surgery. A physical assessment will be performed by a nurse practitioner or seasonal warehouse associate. Your IV will be started and you will meet your anesthesiologist. When you go to surgery, your family will be directed to the surgical waiting room, where the doctor should speak with them after your surgery. After surgery, you will be taken to the recovery room then when you are awake and stable you will go to the short stay unit for preparation to be discharged. Instructions read to Veronica and understanding verbalized. documented in this encounter [facility]ICK[facility] [employer] Work Phone: Clinical Note 06-21-2022 Note Date & Type Note Facility 06-21-2022 Note Education [facility] Orthopedics Chest Wall Pain Chest wall pain is pain in or around the bones and muscles of your chest. Chest wall pain may be caused by: ? An injury. ? Coughing a lot. ? Using your chest and arm muscles too much. Sometimes, the cause may not be known. This pain may take a few weeks or longer to get better. Follow these instructions at home: Managing pain, stiffness, and swelling If told, put ice on the painful area: ? Put ice in a plastic bag. ? Place a towel between your skin and the bag. ? Leave the ice on for 20 minutes, 2?3 times a day. Activity ? Rest as told by your doctor. ? Avoid doing things that cause pain. This includes lifting heavy items. ? Ask your doctor what activities are safe for you. General instructions ? Take gaxa-elx-twkvamf and prescription medicines only as told by your doctor. ? Do not use any products that contain nicotine or tobacco, such as cigarettes, e-cigarettes, and chewing tobacco. If you need help quitting, ask your doctor. ? Keep all follow-up visits as told by your doctor. This is important. Contact a doctor if: ? You have a fever. ? Your chest pain gets worse. ? You have new symptoms. Get help right away if: ? You feel sick to your stomach (nauseous) or you throw up (vomit). ? You feel sweaty or light-headed. ? You have a cough with mucus from your lungs (sputum) or you cough up blood. ? You are short of breath. These symptoms may be an emergency. Do not wait to see if the symptoms will go away. Get medical help right away. Call your local emergency services (911 in the [place] Do not drive yourself to the hospital. Summary ? Chest wall pain is pain in or around the bones and muscles of your chest. ? It may be treated with ice, rest, and medicines. Your condition may also get better if you avoid doing things that cause pain. ? Contact a doctor if you have a fever, chest pain that gets worse, or new symptoms. ? Get help right away if you feel light-headed or you get short of breath. These symptoms may be an emergency. This information is not intended to replace advice given to you by your health care provider. Make sure you discuss any questions you have with your health care provider. Document Revised: 05/03/2019 Document Reviewed: 05/03/2019 [facility] Patient Education ? 2020 [employer]. Pulmonary Medicine Nonspecific Chest Pain, Adult Chest pain can be caused by many different conditions. It can be caused by a condition that is life-threatening and requires treatment right away. It can also be caused by something that is not life-threatening. If you have chest pain, it can be hard to know the difference, so it is important to get help right away to make sure that you do not have a serious condition. Some life-threatening causes of chest pain include: ? Heart attack. ? A tear in the body's main blood vessel (aortic dissection). ? Inflammation around your heart (pericarditis). ? A problem in the lungs, such as a blood clot (pulmonary embolism) or a collapsed lung (pneumothorax). Some non life-threatening causes of chest pain include: ? Heartburn. ? Anxiety or stress. ? Damage to the bones, muscles, and cartilage that make up your chest wall. ? Pneumonia or bronchitis. ? Shingles infection (varicella-zoster virus). Chest pain can feel like: ? Pain or discomfort on the surface of your chest or deep in your chest. ? Crushing, pressure, aching, or squeezing pain. ? Burning or tingling. ? Dull or sharp pain that is worse when you move, cough, or take a deep breath. ? Pain or discomfort that is also felt in your back, neck, jaw, shoulder, or arm, or pain that spreads to any of these areas. Your chest pain may come and go. It may also be constant. Your health care provider will do lab tests and other studies to find the cause of your pain. Treatment will depend on the cause of your chest pain. Follow these instructions at home: Medicines ? Take dzow-zku-bcurnya and prescription medicines only as told by your health care provider. ? If you were prescribed an antibiotic, take it as told by your health care provider. Do not stop taking the antibiotic even if you start to feel better. Lifestyle ? Rest as directed by your health care provider. ? Do not use any products that contain nicotine or tobacco, such as cigarettes and e-cigarettes. If you need help quitting, ask your health care provider. ? Do not drink alcohol. ? Make healthy lifestyle choices as recommended. These may include: ? Getting regular exercise. Ask your health care provider to suggest some activities that are safe for you. ? Eating a heart-healthy diet. This includes plenty of fresh fruits and vegetables, whole grains, low-fat (lean) protein, and low-fat dairy products. A dietitian can help you find healthy eating options. ? Maintaining a healt (more content not included)... [facility] Evaluation note Note Date & Type Note Facility Evaluation note Diagnosis Epigastric abdominal pain Abdominal pain, epigastric History of colonic polyps Personal history of colonic polyps documented in this encounter VICKI ARZOLA [facility] [employer] Work Phone: Summary Purpose Family History No Family History Records FoundNo Family History Records FoundNo Family History Records FoundNo Family History Records FoundNo Family History Records Found Advance Directives No Advanced Directives Records FoundNo Advanced Directives Records FoundNo Advanced Directives Records FoundNo Advanced Directives Records FoundNo Advanced Directives Records Found Additional Source Comments INFORMATION SOURCE (unrecogn ized section and content) DATE CREATED AUTHOR 08/04/2018 [facility] DATE CREATED AUTHOR AUTHOR'S ORGANIZ ATION 03/07/2021 [facility] DATE CREATED AUTHOR AUTHOR'S ORGANIZ ATION 07/09/2022 [facility] DATE CREATED AUTHOR AUTHOR'S ORGANIZ ATION 09/07/2022 [facility] DATE CREATED AUTHOR AUTHOR'S ORGANIZ ATION 03/18/2024 [facility] Care Teams (unrecognized sec tion and content) Cook Manager Relationship Specialty Start Date End Date Ruth Fang, DO [address] [place] [address] PCP - General Family Medicine 09/03/22 Cook Manager Relationship Specialty Start Date End Date Ruth Fang, [address] [place] [address] PCP - General Family Medicine 09/03/22 Reason for Visit (unrecogniz ed section and content) Specialty Diagnoses / Procedures Referred By Contalex t Referred To Contact Diagnoses Epigastric abdominal pain History of colonic polyps EPIGASTRIC ABD PAIN, HX OF COLON POLYPS Procedures MO EGD TRANSORAL BIOPSY SINGLE/MULTIPLE MO COLONOSCOPY FLX DX W/COLLJ SPEC WHEN PFRMD MO ESOPHAGOGASTRODUODENOSCOPY TRANSORAL DIAGNOSTIC MO EGD BALLOON DILATION ESOPHAGUS <30 MM DIAM MO COLONOSCOPY W/BIOPSY SINGLE/MULTIPLE MO COLSC FLX W/RMVL OF TUMOR POLYP LESION SNARE TQ EGD BIOPSY COLONOSCOPY DIAGNOSTIC [place], Toya Scherer MD [address], [address] [address] [facility] [address] [place] [address] Referral ID Status Reason Start Date Expiration Date Visits Re quested Visits Authorized [id number] 1 1 Scheduled Active and Recently Administ ered Medications (unrecognized section and content) Medication Order 09/04/2022 09/05/2022 09/06/2022 sodium chloride flush 0.9 % injection 5-40 mL 5-40 mL, IntraVENous, EVERY 12 HOURS SCHEDULED (2 times per day), First dose on 09/06/22 at 0900, Until Discontinued, For Line Patency: Peripheral IV = 5 mL; Midline or Central Line = 10 mL/lumen. If following IV push medication, administer flush at same rate as the IV push. Flush volume is determined by type of infusion therapy being given. For non-viscous solutions use: Peripheral IV = 5 mL Midline or Central Line = 10 mL/lumen For viscous solutions (i.e. blood components, parenteral nutrition, contrast media, or after obtaining blood sample) use: Peripheral IV = 10 mL Midline or Central Line = 20 mL/lumen, Pre-op (day of surgery) 0900 (Due)2100 (Due) Continuous Medication Order 09/04/2022 09/05/2022 09/06/2022 lactated ringers infusion IntraVENous, at 125 mL/hr, CONTINUOUS, Starting on Tue09/06/22 at 0900, Pre-op (day of surgery) 0936 (New Bag - Prov ider: Sofia Pierre RN)1145 (Paused - Provider: RAZIA Mccullough CRNA - Comment: Switch to gravity)1146 (Restarted - Provider: RAZIA Mccullough CRNA)1225 (Anesthesia Volume Adjustment - Provider: RAZIA Mccullough CRNA)1320 (Stopped - Provider: Radha Monzon RN) PRN Medication Order 09/04/2022 09/05/2022 09/06/2022 0.9 % sodium chloride infusion IntraVENous, at 5-250 mL/hr, PRN, if patient receiving piggyback infusions and maintenance fluids are not ordered OR KVO fluids to protect IV site / prevent frequent line interruptions/ long duration, Starting on Tue09/06/22 at 0835, For piggyback infusion, administer at same rate as piggyback for a total of 25 mL. Enter 25 mL into dose field and piggyback rate into rate field of order. If piggyback is infusing at a rate less than 100 mL/hr, enter 25 mL into dose field and 100 mL/hr into rate field of order. For KVO fluids, enter rate of 20 mL/hr or less into rate field of order., Pre-op (day of surgery) lidocaine PF 1 % injection 1 mL (COMPLETED) 1 mL, IntraDERmal, ONCE PRN, 1 dose, Starting on Tue09/06/22 at 0835, Until Tue09/07/22 at 0835, IV start, Pre-op (day of surgery) 1151 (Given - Provid er: RAZIA Mccullough CRNA) sodium chloride flush 0.9 % injection 5-40 mL 5-40 mL, IntraVENous, PRN, Starting on Tue09/06/22 at 0835, Until Discontinued, Line Care, After every IV line use, For Line Patency: Peripheral IV = 5 mL; Midline or Central Line = 10 mL/lumen. If following IV push medication, administer flush at same rate as the IV push. Flush volume is determined by type of infusion therapy being given. For non-viscous solutions use: Peripheral IV = 5 mL Midline or Central Line = 10 mL/lumen For viscous solutions (i.e. blood components, parenteral nutrition, contrast media, or after obtaining blood sample) use: Peripheral IV = 10 mL Midline or Central Line = 20 mL/lumen, Pre-op (day of surgery) FOR RECORDS PERTAINING TO PATIENTS WHO ARE OR HAVE BEEN ENROLLED IN A CHEMICAL DEPENDENCY/SUBSTANCEABUSE PROGRAM, SOME INFORMATION MAY BE OMITTED. This clinical summary was aggregated from multiple sources. Caution should be exercised in using it in the provision of clinical care. This summary normalizes information from multiple sources, and as a consequence, information in this document may materially change the coding, format and clinical context of patient data. In addition, data may be omitted in some cases. CLINICAL DECISIONS SHOULD BE BASED ON THE PRIMARY CLINICAL RECORDS. [employer] provides no warranty or guarantee of the accuracy or completeness of information in this document.
[2024-07-12 00:29] LABS: Bilirubin Urine NEGATIVE (NEGATIVE); Blood Urine NEGATIVE (NEGATIVE); Clarity Urine CLEAR (CLEAR); Color Urine YELLOW (YELLOW); Glucose Urine UA NEGATIVE (NEGATIVE); Ketones Urine NEGATIVE (NEGATIVE); Leukocyte Esterase Urine NEGATIVE (NEGATIVE); Nitrite Urine NEGATIVE (NEGATIVE); Protein Urine NEGATIVE (NEG/TRACE); Urobilinogen Urine 0.2 EU/dL (0.2-1.0)
[2024-07-12] MEDS: ONDANSETRON PF 4 MG/2 ML VIAL IV (00:38)
[2024-07-12] MEDS: 0.9 % SODIUM CHLORIDE 1,000 ML 999 ML IV (00:38)
[2024-07-12 00:39] LABS: Urine Microscopic Indicated NO
--- NOTE | 2024-07-12 00:41 | CT_ITS ---
The [address] [address] Patient Name: JT FRIEDMAN MRN: [id number] date: 1975 Sex: F Assigned Patient Location: ER Current Patient Location: ER Accession/Order Number: [id number] Exam Date: 07/12/2024 00:55 Report Date: 07/12/2024 02:02 At the request of: EVELIA WAGNER Procedure: CT abdomen pelvis wo con EXAM: CT abdomen pelvis wo con HISTORY: abdominal pain COMPARISON: CT abdomen and pelvis examination dated 10/30/2013. TECHNIQUE: Noncontrast axial CT images of the abdomen and pelvis were obtained with coronal and sagittal reformats. Dose reduction techniques were achieved by using automated exposure control and/or adjustment of mA and/or kV according to patient size and/or use of iterative reconstruction technique. FINDINGS: There is mild bibasilar atelectasis. Abdomen: Please note that the sensitivity for detection of focal lesions or vascular disease is markedly reduced without intravenous contrast. The liver and spleen are unremarkable. There is no intra or extrahepatic biliary duct dilatation. The gallbladder is surgically absent. There are a few left adrenal adenomas measuring up to 1.7 x 1.7 cm (series 3, image 23). There is a small hemorrhagic or proteinaceous left renal cyst. The pancreas is unremarkable. There is no mesenteric or retroperitoneal lymphadenopathy. The patient is status post an appendectomy. There is colonic diverticulosis without inflammatory changes about a sigmoid colon diverticulum. Pelvis: The bladder and rectum are unremarkable. There is no iliac or inguinal lymphadenopathy. The patient is status post a hysterectomy. There is moderate atherosclerotic disease. Bone windows show no aggressive osseous lesions. CT/CT abdomen pelvis wo con IMPRESSION: 1. Possible early acute sigmoid diverticulitis. 2. Status post cholecystectomy, appendectomy, and hysterectomy. 3. Left adrenal adenomas. Electronically authenticated by: Sp CHAPIN Date: 07/12/2024 02:02
[2024-07-12 00:48] LABS: Basophils Absolute Auto 0.1 10^3/uL (0.0-0.1); Basophils Percent Auto 0.6 % (0.2-2.0); Eosinophils Absolute Auto 0.2 10^3/uL (0.0-0.7); Hemoglobin 14.6 g/dL (12.0-16.0); Immature Granulocytes Abs Auto 0.02 10^3/uL (0.00-0.03); Immature Granulocytes Pct Auto 0.3 % (0.0-0.5); Lymphocytes Absolute Auto 2.3 10^3/uL (1.2-3.8); Lymphocytes Percent Auto 29.6 % (20.5-60.0); Mean Corpuscular HGB Conc 33.2 g/dL (29.9-35.2); Mean Corpuscular Hemoglobin 29.6 pg (26.7-34.0); Mean Corpuscular Volume 89.2 fL (81.0-99.0); Mean Platelet Volume 10.4 fL (9.5-13.5); Monocytes Absolute Auto 0.5 10^3/uL (0.3-0.8); Monocytes Percent Auto 6.1 % (1.7-12.0); Neutrophils Absolute Auto 4.8 10^3/uL (1.4-6.5); Neutrophils Percent Auto 60.4 % (43.0-75.0); Platelet Count 242 10^3/uL (150-450); Red Blood Count 4.93 10^6/uL (4.20-5.40); Red Cell Distribution Width 13.8 % (11.0-15.0); White Blood Count 7.9 10^3/uL (4.0-11.0)
--- NOTE | 2024-07-12 00:49 | PC.NURSE ---
Patient states that she ate a salad with chicken out of a vending machine at work and had been vomiting and having diarrhea since then. She checked the expiration dates on the salad and dressing and neither were .
[2024-07-12 01:09] LABS: Alanine Aminotransferase 18 U/L (14-59); Albumin Globulin Ratio 1.1; Albumin Level 3.6 g/dL (3.4-5.0); Alkaline Phosphatase 115 U/L (46-116); Anion Gap 10.3; Aspartate Amino Transferase 9 U/L (15-37); BUN Creatinine Ratio 14.1; Bilirubin Total 0.4 mg/dL (0.2-1.0); Carbon Dioxide 27.5 mmol/L (21.0-32.0); Chloride 104 mmol/L (98-107); Estimated GFR (African America >60 (>=60); Estimated GFR (Non-African Ame >60 (>=60); Globulin 3.3 g/dL; Glucose 92 mg/dL (74-106); Potassium 3.8 mmol/L (3.5-5.1); Sodium 138 mmol/L (136-145); Total Protein 6.9 g/dL (6.4-8.2)
[2024-07-12 01:11] LABS: Lactate/Lactic Acid 0.9 mmol/L (0.4-2.0)
[2024-07-12] MEDS: METRONIDAZOLE/SODIUM CHLORIDE 500 MG/100 ML PREMIX 100 MG IV (02:47)
[2024-07-12] MEDS: CIPROFLOXACIN IN 5 % DEXTROSE 400 MG/200 ML PREMIX 200 MG IV (02:47)
== END 2024-07-12 04:00 | disposition home or self-care (01) ==
PROVIDERS: Emergency Provider Internal Medicine
DX: K52.9 Noninfective gastroenteritis and colitis, unspecified (principal); K57.32 Diverticulitis of large intestine without perforation or abscess without bleeding; F17.200 Nicotine dependence, unspecified, uncomplicated
CPT/HCPCS: 36415; 74176; 80053; 81003; 83605; 83690; 85025; 96361; 96365; 96368; 96375; 99284; J0744; J1836; J2405